=== PATIENT | male | born 1945 | race Two or more races ===

== ENCOUNTER 2017-09-25 06:41 | Inpatient (IN) | payer OTHER ==
[~2017-09-25] VITALS: Ht 182.9 cm; Wt 96.5 kg
[~2017-09-25 06:41] MED LIST: ASCO500T11 PO; ASPI81TA27 PO; B-CO1TAB8 PO; CHOL20009 PO; DICL-176 PO; FERR325T PO; FOLI1TAB6 PO; GABA-497 PO; HYDR200T36 PO; INSLANTI SC; INSLISPI SC; KRIL1CAP9 PO; LEFL20TA PO; LEUP22.52 IM; LEVO137T3 PO; LISI-275 PO; LOPE2CAP PO; METF-372 PO; METH5INJ IJ; MORP1TAB12 PO; MULTTAB61 PO; OMEP20CA74 PO; PERCOT PO; PRED-559 PO; SIMV-8 PO; THIA100T11 OP
[2017-09-25] MEDS ORDERED: ceFAZolin 1GM/50ML 50 ML IV ONE (07:48)
[2017-09-25] MEDS ORDERED: TRANEXAMIC ACID 1,000 mg/10ml INJ VIAL ONE (08:00)
[2017-09-25] MEDS ORDERED: LIDOCAINE 1% HCL (LOCAL ANESTH.) INJ 20ML MDV ONE (08:00)
[2017-09-25] MEDS ORDERED: BUPIVACAINE HCL 50 ML ONE (08:00)
[2017-09-25] MEDS ORDERED: fentaNYL CITRATE 100 MCG/2 ML VL ONE ×2 (08:19→08:40)
[2017-09-25] MEDS ORDERED: MIDAZOLAM HCL 1MG/1ML-2 ML VIAL ONE (08:19)
[2017-09-25] MEDS ORDERED: PROPOFOL 10 MG/ML 20 ML IV ONE (08:22)
[2017-09-25] MEDS ORDERED: methylPREDNISolone SOD SUCC 40 MG/ML VL ONE (08:39)
[2017-09-25] MEDS ORDERED: hydrALAZINE HCL 20 MG/ML VL IV PRN (10:00)
[2017-09-25] MEDS ORDERED: ONDANSETRON HCL 4 MG/2 ML VIAL IV ONE (10:00)
[2017-09-25] MEDS ORDERED: ePHEDrine SULFATE 50 MG/ML AMP IV PRN (10:00)
[2017-09-25] MEDS: MORPHINE SULF INJ 2 MG/ML SYRINGE 1ML IV PRN ×6 (10:18→23:10)
[2017-09-25] MEDS ORDERED: KETOROLAC TROMETH 30 MG/ML 1ML VIAL ONE (10:56)
[2017-09-25] MEDS ORDERED: MORPHINE SULF INJ 2 MG/ML SYRINGE 1ML IV PRN ×2 (11:00→12:30)
[2017-09-25] MEDS ORDERED: KETOROLAC TROMETH 30 MG/ML 1ML VIAL IV ONE (11:15)
[2017-09-25] MEDS ORDERED: NITROGLYCERIN 0.4 MG SL TAB SL PRN (12:30)
[2017-09-25] MEDS ORDERED: DEXTROSE (50%) 50ML SYRG IV PRN (12:45)
[2017-09-25] MEDS: THIAMINE HCL 100 MG TAB PO SCH (13:15)
[2017-09-25] MEDS: LOPERAMIDE HCL 2 MG CAP PO SCH ×2 (14:00→22:00)
[2017-09-25] MEDS: GABAPENTIN 300 MG CAP PO SCH ×2 (14:00→21:31)
[2017-09-25] MEDS: ceFAZolin 1GM/50ML 50 ML IV SCH ×2 (15:00→21:31)
[2017-09-25] MEDS: InsuLIN REG 1unit/0.01ml Soln (100units/ml) SC SCH ×2 (16:00→20:00)
[2017-09-25] MEDS: ACCU-CHEK COMFORT CURVE STRIP VI SCH ×2 (16:17→21:36)
[2017-09-25 17:05] VITALS: BP 137/80
[2017-09-25] MEDS: D5W/LACTATED RINGERS 1,000 ML IV SCH ×2 (18:13→21:37)
[2017-09-25 22:00] VITALS: BP 126/68
[2017-09-25] MEDS ORDERED: oxyCODONE ER 10 MG TAB PO SCH (22:00)
[2017-09-25] MEDS ORDERED: PRAVASTATIN SODIUM 20 MG TAB PO SCH (22:00)
[2017-09-26] MEDS: OXYCODONE W/ ACETAMINOPHEN 5/325MG TABLET PO PRN ×2 (02:50→06:55)
[2017-09-26] MEDS: ACCU-CHEK COMFORT CURVE STRIP VI SCH ×3 (02:51→08:00)
[2017-09-26] MEDS: InsuLIN REG 1unit/0.01ml Soln (100units/ml) SC SCH ×3 (04:00→08:00)
[2017-09-26] MEDS: MORPHINE SULF INJ 2 MG/ML SYRINGE 1ML IV PRN ×2 (04:11→08:35)
[2017-09-26 04:37] VITALS: BP 148/70
[2017-09-26] MEDS: GABAPENTIN 300 MG CAP PO SCH (05:57)
[2017-09-26] MEDS: ceFAZolin 1GM/50ML 50 ML IV SCH (06:00)
[2017-09-26] MEDS: LOPERAMIDE HCL 2 MG CAP PO SCH (06:00)
[2017-09-26 06:36] LABS: BUN/Creatinine Ratio 14.1; Calcium 8.3 mg/dL (8.5-10.1); Potassium 3.9 mmol/L (3.5-5.1)
[2017-09-26 08:00] VITALS: BP 127/65
[2017-09-26] MEDS ORDERED: HYDROcodone-ACET 10/325MG TAB PO PRN (08:15)
[2017-09-26] MEDS ORDERED: PANTOPRAZOLE 40 MG TAB PO SCH (10:00)
[2017-09-26] MEDS ORDERED: ENOXAPARIN SOD 30 MG/0.3 ML SYRINGE SC SCH (10:00)
[2017-09-26] MEDS ORDERED: LISINOPRIL 5 MG TAB PO SCH (10:00)
[2017-09-26] MEDS ORDERED: oxyCODONE ER 20 MG TAB PO SCH (10:00)
[2017-09-26] MEDS ORDERED: ASCORBIC ACID 500 MG TAB PO SCH (10:00)
[2017-09-26] MEDS ORDERED: MULTIPLE VITAMIN TAB PO SCH (10:00)
[2017-09-26] MEDS: THIAMINE HCL 100 MG TAB PO SCH (10:36)
[2017-09-26 12:11] VITALS: BP 127/65
[2017-09-26 13:00] VITALS: BP 129/65
[2017-09-26 17:53] VITALS: BP 168/105
== END 2017-09-26 13:15 | disposition home or self-care (01) | DRG 502 ==
LOC: SUR 06:41 → EAST 06:42
PROVIDERS: ADMIT Orthopaedic Surgery Adult Reconstructive Orthopaedic Surgery; ATTEND Orthopaedic Surgery Adult Reconstructive Orthopaedic Surgery
PROC: 0LUL0KZ Supplement Right Upper Leg Tendon with Nonautologous Tissue Substitute, Open Approach (ICD-10-PCS; principal; 2017-09-25 08:19)
DX: S76.111A Strain of right quadriceps muscle, fascia and tendon, initial encounter (principal); E11.9 Type 2 diabetes mellitus without complications; M06.9 Rheumatoid arthritis, unspecified; Z79.4 Long term (current) use of insulin; Y93.89 Activity, other specified; Z82.49 Family history of ischemic heart disease and other diseases of the circulatory system; Y92.89 Other specified places as the place of occurrence of the external cause; Y99.8 Other external cause status; Z85.46 Personal history of malignant neoplasm of prostate; Z83.3 Family history of diabetes mellitus; Z79.899 Other long term (current) drug therapy; X50.1XXA Overexertion from prolonged static or awkward postures, initial encounter
CPT/HCPCS: 36415; 80048; 82962; J0690; J1815; J1885; J2001; J2250; J2405; J2704; J3490; J7060

== ENCOUNTER 2017-12-25 06:32 | Day surgery (SDC) | payer OTHER ==
[~2017-12-25 06:32] MED LIST changes: +FERR-20 PO; -FERR325T PO; -GABA-497 PO; +GABA300C10 PO
[2017-12-25] MEDS ORDERED: LIDOCAINE 1% HCL (LOCAL ANESTH.) INJ 20ML MDV ONE (06:55)
[2017-12-25] MEDS ORDERED: ceFAZolin 1GM VL ONE (06:55)
[2017-12-25] MEDS ORDERED: BUPIVACAINE 0.25% INJ 50ML VIAL ONE (06:55)
[2017-12-25] MEDS ORDERED: ceFAZolin 1GM/50ML 100 ML IV ONE (06:56)
[2017-12-25] MEDS ORDERED: cefTRIAXone 1GM/50ML D5W 50 ML IV ONE (06:58)
[2017-12-25] MEDS ORDERED: PROPOFOL 10 MG/ML 20 ML IV ONE (07:25)
[2017-12-25] MEDS ORDERED: fentaNYL CITRATE 100 MCG/2 ML VL ONE (07:25)
[2017-12-25] MEDS ORDERED: HYDROCORTISONE SOD SUCC 100 MG/2ML INJ VIAL ONE (07:29)
[2017-12-25] MEDS ORDERED: cefTRIAXone SOD 1,000 MG VL ONE (07:38)
[2017-12-25] MEDS ORDERED: ePHEDrine SULFATE 50 MG/ML AMP IV PRN (08:30)
[2017-12-25] MEDS ORDERED: MORPHINE SULFATE 4 MG/ML SYR/VIAL IV PRN (08:30)
[2017-12-25] MEDS ORDERED: hydrALAZINE HCL 20 MG/ML VL IV PRN (08:30)
[2017-12-25 09:25] VITALS: BP 138/68
== END 2017-12-25 09:30 | disposition home or self-care (01) ==
LOC: SUR 06:32
PROVIDERS: ATTEND Orthopaedic Surgery Adult Reconstructive Orthopaedic Surgery
DX: L08.89 Other specified local infections of the skin and subcutaneous tissue (principal); M13.161 Monoarthritis, not elsewhere classified, right knee; C61 Malignant neoplasm of prostate; M06.9 Rheumatoid arthritis, unspecified; E11.9 Type 2 diabetes mellitus without complications; I10 Essential (primary) hypertension; E03.9 Hypothyroidism, unspecified; Z79.4 Long term (current) use of insulin
CPT/HCPCS: 11043; 82962; J0690; J0696; J1720; J2001; J2704; J3010; J3490

== ENCOUNTER 2021-02-22 07:34 | Inpatient (IN) | payer OTHER ==
[2021-02-22] VITALS (8 sets, daily range): BP systolic 103–140; BP diastolic 53–85
[~2021-02-22] VITALS: Ht 154.9 cm; Wt 81.9 kg
[~2021-02-22 07:34] MED LIST changes: -ASPI81TA27 PO; -B-CO1TAB8 PO; -CHOL20009 PO; -DICL-176 PO; +DICL75TA3 PO; +IPRA0.03; -MORP1TAB12 PO; -MULTTAB61 PO; -PERCOT PO; -THIA100T11 OP; +UPAD15TA PO
[2021-02-22] MEDS ORDERED: BUPIVACAINE 0.25% INJ 50ML VIAL ONE (08:41)
[2021-02-22] MEDS ORDERED: TRANEXAMIC ACID 10 ML ONE (08:41)
[2021-02-22] MEDS ORDERED: BUPIVACAINE W/ EPINEPH 0.5% MPF 30ML VIAL IJ ONE (08:41)
[2021-02-22] MEDS ORDERED: VANCOMYCIN HCL 1000 MG VL ONE (08:47)
[2021-02-22] MEDS ORDERED: ACETAMINOPHEN IV 100 ML IV ONE (09:08)
[2021-02-22] MEDS ORDERED: ceFAZolin 1GM/50ML 100 ML IV ONE (09:08)
[2021-02-22] MEDS ORDERED: ACETAMINOPHEN IV 1000 MG/100ML (10MG/ML) IV ONE (09:15)
[2021-02-22] MEDS ORDERED: PREGABALIN CAPSULE 75 MG CAP PO ONE (09:15)
[2021-02-22] MEDS ORDERED: CELECOXIB 100 MG CAP PO ONE (09:15)
[2021-02-22] MEDS ORDERED: MORPHINE SULF PF 2 MG/2 ML SYRG ONE ×2 (09:36→09:48)
[2021-02-22] MEDS ORDERED: KETOROLAC TROMETH 30 MG/ML 1ML VIAL ONE (09:36)
[2021-02-22] MEDS ORDERED: TETRACAINE 1% INJ 2 ML VIAL IJ ONE (09:46)
[2021-02-22] MEDS ORDERED: fentaNYL CITRATE 100 MCG/2 ML VL ONE (09:48)
[2021-02-22] MEDS ORDERED: MIDAZOLAM HCL 2MG/2ML 2ml VIAL (1mg/ml) ONE ×2 (09:48→10:22)
[2021-02-22] MEDS ORDERED: PROPOFOL 10 MG/ML 20 ML IV ONE (10:12)
[2021-02-22] MEDS ORDERED: DexAMETHasone SOD PHOS 10MG/1ML VIAL INJ ONE (10:12)
[2021-02-22] MEDS: TRANEXAMIC ACID 10 ML ONE ×2 (10:30→12:01)
[2021-02-22] MEDS ORDERED: LABETALOL HCL 5 MG/ML 4ML SYRINGE IV PRN (11:45)
[2021-02-22] MEDS ORDERED: diphenhdrAMINE HCL 50 MG/1 ML VL IV PRN (11:45)
[2021-02-22] MEDS ORDERED: NALOXONE HCL 0.4 MG/ML VIAL IV PRN (11:45)
[2021-02-22] MEDS ORDERED: NALBUPHINE HCL 10 MG/1ml INJECTION SUBCUT ONE (11:45)
[2021-02-22] MEDS ORDERED: HYDROmorphone HCL 2 MG/ML VL IV PRN (11:45)
[2021-02-22] MEDS ORDERED: ePHEDrine SULFATE 50 MG/ML AMP IV PRN (11:45)
[2021-02-22] MEDS ORDERED: ONDANSETRON HCL 4 MG/2 ML VIAL IV PRN ×2 (11:45→12:15)
[2021-02-22] MEDS ORDERED: DexAMETHasone SOD PHOS 10MG/1ML VIAL INJ IV PRN (11:45)
[2021-02-22] MEDS: FERROUS SULFATE 325mg EC TAB PO SCH ×2 (12:00→17:05)
[2021-02-22] MEDS ORDERED: NITROGLYCERIN 0.4 MG SL TAB SL PRN (12:15)
[2021-02-22] MEDS ORDERED: MORPHINE SULFATE INJECTION 2 MG/ML SYRG IV PRN (12:15)
[2021-02-22] MEDS ORDERED: OXYCODONE W/ ACETAMINOPHEN 5/325MG TABLET PO PRN (12:15)
[2021-02-22] MEDS ORDERED: BISACODYL 5 MG EC TAB PO PRN (12:15)
[2021-02-22] MEDS ORDERED: DEXTROSE (50%) 50ML SYRG IV PRN (12:15)
[2021-02-22] MEDS ORDERED: ceFAZolin 1GM/50ML 50 ML IV SCH (12:15)
[2021-02-22] MEDS: LACTATED RINGER'S 1,000 ML IV SCH ×2 (12:37→22:15)
[2021-02-22] MEDS: GABAPENTIN 300 MG CAP PO SCH ×2 (14:00→21:35)
[2021-02-22] MEDS: INSULIN LISPRO (HUMAN) 100 UNITS/ML ML SC SCH ×2 (14:00→21:47)
[2021-02-22] MEDS: LOPERAMIDE HCL 2 MG CAP PO SCH ×2 (14:00→21:36)
[2021-02-22] MEDS: ceFAZolin 1GM/50ML 50 ML IV SCH ×2 (15:55→21:11)
[2021-02-22] MEDS: ACCU-CHEK COMFORT CURVE STRIP VI SCH ×2 (16:59→21:47)
[2021-02-22] MEDS: InsuLIN REG 1unit/0.01ml Soln (100units/ml) SC SCH ×2 (17:06→21:47)
[2021-02-22] MEDS: ATORVASTATIN 20 MG TAB PO SCH (21:35)
[2021-02-22] MEDS: ATROVENT SCH (21:36)
[2021-02-22] MEDS: DOCUSATE SOD 100 MG CAP PO SCH (21:36)
[2021-02-22] MEDS ORDERED: metFORMIN HYDROCHLORIDE 500 MG TAB PO SCH (22:00)
[2021-02-23] VITALS (11 sets, daily range): BP systolic 102–153; BP diastolic 46–84
[2021-02-23] MEDS: ceFAZolin 1GM/50ML 50 ML IV SCH (03:10)
[2021-02-23] MEDS: INSULIN LISPRO (HUMAN) 100 UNITS/ML ML SC SCH ×3 (06:00→21:32)
[2021-02-23] MEDS: LOPERAMIDE HCL 2 MG CAP PO SCH ×3 (06:00→21:27)
[2021-02-23] MEDS: InsuLIN REG 1unit/0.01ml Soln (100units/ml) SC SCH ×4 (06:08→21:32)
[2021-02-23] MEDS: ACCU-CHEK COMFORT CURVE STRIP VI SCH ×4 (06:09→21:28)
[2021-02-23] MEDS: GABAPENTIN 300 MG CAP PO SCH ×3 (06:13→21:26)
[2021-02-23] MEDS: LEVOTHYROXINE SODIUM 112 MCG TAB PO SCH (06:13)
[2021-02-23] MEDS: LEVOTHYROXINE SODIUM 25 MCG TAB PO SCH (06:13)
[2021-02-23 06:19] LABS: Hemoglobin 8.7 g/dL (13.5-17.5)
[2021-02-23 06:21] LABS: Hematocrit 25.7 % (41.0-53.0)
[2021-02-23 06:42] LABS: Potassium 4.5 mmol/L (3.5-5.1)
[2021-02-23 06:57] LABS: Albumin 2.8 g/dL (3.4-5.0); BUN/Creatinine Ratio 20.2; Bilirubin, Total 0.2 mg/dL (0.2-1.0); Calcium 7.9 mg/dL (8.5-10.1); Total Protein 5.6 g/dL (6.4-8.2)
[2021-02-23] MEDS: traMADol HCL 50 MG TAB PO PRN ×2 (06:58→19:50)
[2021-02-23] MEDS: FERROUS SULFATE 325mg EC TAB PO SCH ×3 (08:30→18:04)
[2021-02-23] MEDS: LACTATED RINGER'S 1,000 ML IV SCH ×2 (08:30→23:00)
[2021-02-23] MEDS: ENOXAPARIN SOD 40 MG/0.4 ML SYRINGE SC SCH (09:37)
[2021-02-23] MEDS: DOCUSATE SOD 100 MG CAP PO SCH ×2 (09:39→21:26)
[2021-02-23] MEDS: FOLIC ACID 1 MG TAB PO SCH (09:39)
[2021-02-23] MEDS: OMEPRAZOLE 20MG/10ML ORAL SUSP PO SCH (09:40)
[2021-02-23] MEDS: LISINOPRIL 5 MG TAB PO SCH (09:40)
[2021-02-23] MEDS: ASCORBIC ACID 500 MG TAB PO SCH (09:41)
[2021-02-23] MEDS: ATROVENT SCH ×2 (09:46→21:28)
[2021-02-23] MEDS: OXYCODONE W/ ACETAMINOPHEN 5/325MG TABLET PO PRN ×2 (10:41→21:27)
[2021-02-23] MEDS: HYDROmorphone HCL 2 MG/ML VL IV PRN ×2 (12:31→18:19)
[2021-02-23] MEDS: ATORVASTATIN 20 MG TAB PO SCH (21:26)
[2021-02-24] MEDS: HYDROmorphone HCL 2 MG/ML VL IV PRN ×2 (02:08→08:07)
[2021-02-24 04:34] VITALS: BP 137/82
[2021-02-24 05:33] LABS: Hematocrit 25.7 % (41.0-53.0); Hemoglobin 8.8 g/dL (13.5-17.5)
[2021-02-24] MEDS: LOPERAMIDE HCL 2 MG CAP PO SCH ×3 (05:42→21:53)
[2021-02-24 05:55] LABS: Calcium 8.2 mg/dL (8.5-10.1); Magnesium 2.1 mg/dL (1.6-2.6); Potassium 4.1 mmol/L (3.5-5.1)
[2021-02-24 05:58] LABS: BUN/Creatinine Ratio 17.5
[2021-02-24] MEDS: INSULIN LISPRO (HUMAN) 100 UNITS/ML ML SC SCH ×3 (06:00→22:05)
[2021-02-24] MEDS: GABAPENTIN 300 MG CAP PO SCH ×3 (06:04→21:53)
[2021-02-24] MEDS: LEVOTHYROXINE SODIUM 25 MCG TAB PO SCH (06:04)
[2021-02-24] MEDS: LEVOTHYROXINE SODIUM 112 MCG TAB PO SCH (06:04)
[2021-02-24] MEDS: ACCU-CHEK COMFORT CURVE STRIP VI SCH ×4 (06:05→21:53)
[2021-02-24] MEDS: OXYCODONE W/ ACETAMINOPHEN 5/325MG TABLET PO PRN (06:05)
[2021-02-24] MEDS: InsuLIN REG 1unit/0.01ml Soln (100units/ml) SC SCH ×4 (06:10→22:05)
[2021-02-24 08:01] VITALS: BP 120/68
[2021-02-24] MEDS: FERROUS SULFATE 325mg EC TAB PO SCH ×3 (08:06→18:33)
[2021-02-24] MEDS: ENOXAPARIN SOD 40 MG/0.4 ML SYRINGE SC SCH (09:56)
[2021-02-24] MEDS: ASCORBIC ACID 500 MG TAB PO SCH (10:09)
[2021-02-24] MEDS: DOCUSATE SOD 100 MG CAP PO SCH ×2 (10:09→21:53)
[2021-02-24] MEDS: ATROVENT SCH ×2 (10:10→21:53)
[2021-02-24] MEDS: LISINOPRIL 5 MG TAB PO SCH (10:10)
[2021-02-24] MEDS: FOLIC ACID 1 MG TAB PO SCH (10:11)
[2021-02-24] MEDS: OMEPRAZOLE 20MG/10ML ORAL SUSP PO SCH (10:11)
[2021-02-24] MEDS ORDERED: METOPROLOL SUCCINATE XL 50 MG TAB PO ONE (11:30)
[2021-02-24 12:00] VITALS: BP 120/68
[2021-02-24 16:39] VITALS: BP 106/56
[2021-02-24] MEDS: traMADol HCL 50 MG TAB PO PRN (20:05)
[2021-02-24 21:39] VITALS: BP 119/67
[2021-02-24] MEDS: ATORVASTATIN 20 MG TAB PO SCH (21:53)
[2021-02-25 05:08] VITALS: BP 152/82
[2021-02-25] MEDS: INSULIN LISPRO (HUMAN) 100 UNITS/ML ML SC SCH ×2 (06:00→13:54)
[2021-02-25] MEDS: LOPERAMIDE HCL 2 MG CAP PO SCH ×2 (06:00→13:43)
[2021-02-25] MEDS: LEVOTHYROXINE SODIUM 25 MCG TAB PO SCH (06:04)
[2021-02-25] MEDS: LEVOTHYROXINE SODIUM 112 MCG TAB PO SCH (06:04)
[2021-02-25] MEDS: GABAPENTIN 300 MG CAP PO SCH ×2 (06:04→13:45)
[2021-02-25] MEDS: ACCU-CHEK COMFORT CURVE STRIP VI SCH ×3 (06:05→17:00)
[2021-02-25] MEDS: InsuLIN REG 1unit/0.01ml Soln (100units/ml) SC SCH ×3 (06:07→17:00)
[2021-02-25 06:12] LABS: Hematocrit 26.1 % (41.0-53.0)
[2021-02-25] MEDS: FERROUS SULFATE 325mg EC TAB PO SCH ×2 (07:44→12:00)
[2021-02-25] MEDS: OXYCODONE W/ ACETAMINOPHEN 5/325MG TABLET PO PRN (08:41)
[2021-02-25 08:46] VITALS: BP 130/76
[2021-02-25] MEDS: DOCUSATE SOD 100 MG CAP PO SCH (09:38)
[2021-02-25] MEDS: LISINOPRIL 5 MG TAB PO SCH (09:38)
[2021-02-25] MEDS: ASCORBIC ACID 500 MG TAB PO SCH (09:39)
[2021-02-25] MEDS: FOLIC ACID 1 MG TAB PO SCH (09:39)
[2021-02-25] MEDS: ENOXAPARIN SOD 40 MG/0.4 ML SYRINGE SC SCH (09:39)
[2021-02-25] MEDS: ATROVENT SCH (09:40)
[2021-02-25] MEDS: OMEPRAZOLE 20MG/10ML ORAL SUSP PO SCH (09:40)
[2021-02-25] MEDS ORDERED: ASPirin 81 mg TAB PO ONE (10:45)
[2021-02-25] MEDS ORDERED: METOPROLOL SUCCINATE XL 50 MG TAB PO ONE (10:45)
[2021-02-25 13:20] VITALS: BP 113/62
[2021-02-25 16:31] VITALS: BP 121/70
[2021-02-26] MEDS ORDERED: ASPirin 81 mg TAB PO SCH (10:00)
[2021-02-26] MEDS ORDERED: METOPROLOL SUCCINATE XL 50 MG TAB PO SCH (10:00)
== END 2021-02-25 16:53 | disposition home health service (06) | DRG 470 ==
LOC: TELE 08:57 → EDSTATUS 09:45 → TELE-WESTW 15:01
PROVIDERS: ADMIT Orthopaedic Surgery Adult Reconstructive Orthopaedic Surgery; ATTEND Orthopaedic Surgery Adult Reconstructive Orthopaedic Surgery
PROC: 3E0T3BZ Introduction of Anesthetic Agent into Peripheral Nerves and Plexi, Percutaneous Approach (ICD-10-PCS; 2021-02-22)
PROC: 8E0YXBZ Computer Assisted Procedure of Lower Extremity (ICD-10-PCS; 2021-02-22)
PROC: 0SRD0J9 Replacement of Left Knee Joint with Synthetic Substitute, Cemented, Open Approach (ICD-10-PCS; principal; 2021-02-22 09:51)
DX: M17.12 Unilateral primary osteoarthritis, left knee (principal); E44.0 Moderate protein-calorie malnutrition; I10 Essential (primary) hypertension; E11.65 Type 2 diabetes mellitus with hyperglycemia; M06.9 Rheumatoid arthritis, unspecified; D64.9 Anemia, unspecified; E11.42 Type 2 diabetes mellitus with diabetic polyneuropathy; R00.0 Tachycardia, unspecified; Z20.822 Contact with and (suspected) exposure to COVID-19; I49.9 Cardiac arrhythmia, unspecified; M21.162 Varus deformity, not elsewhere classified, left knee; Z79.4 Long term (current) use of insulin; Z82.0 Family history of epilepsy and other diseases of the nervous system; Z82.49 Family history of ischemic heart disease and other diseases of the circulatory system; Z83.3 Family history of diabetes mellitus; Z85.46 Personal history of malignant neoplasm of prostate; Z68.34 Body mass index [BMI] 34.0-34.9, adult
CPT/HCPCS: 36415; 73562; 80048; 80053; 82962; 83735; 84484; 85014; 85018; 86850; 86900; 86901; 93005; 97110; 97116; 97163; 97530; C1713; C1776; G0378; J0131; J0690; J1100; J1815; J1885; J2250; J2704; J3490

== ENCOUNTER 2025-08-23 01:29 | Inpatient (IN) | payer OTHER ==
[~2025-08-23] VITALS: Ht 180.3 cm; Wt 78.5 kg
[2025-08-23] VITALS (8 sets, daily range): BP systolic 116–149; BP diastolic 58–84; PULSE 52–78; RESP 17–20; TEMP 96–97.9; O2SAT 95–98
[~2025-08-23 01:29] MED LIST changes: -FERR-20 PO; +FERR325T24 PO; +FOLI-119 PO; -FOLI1TAB6 PO; +GABA-1250 PO; -GABA300C10 PO; -SIMV-8 PO; +SIMV20TA20 PO
--- NOTE | 2025-08-23 01:47 | ED.PDOC ---
HPI Comments HPI: Poor Historian. 80-year-old male transferred from [facility] for higher level of care for cardiology evaluation. Patient presented to the outside facility for lightheadedness and decreased heart rate in the 40s and some nonspecific substernal pain for the last three days. While the patient was waiting there, patient had runs of V-tach proximally 11-15 beats. Patient was noted to have first-degree AV block rate in the 70s. Cardiology was consulted at the outside facility Dr. Cohen who recommended transfer the patient to [facility] where his acoustical material worker Dr. Wolf is. Per the transfer doctor, patient troponin x2 was unremarkable. CTA angiogram of the chest was normal without any presence of dissection or PE. Patient is awaiting a GI procedure and has stopped taking his omeprazole. Patient was given GI cocktail at the outside facility. Patient has an appointment with his acoustical material worker this coming Monday. CBC and CMP were essentially unremarkable. Patient's blood pressure remained stable throughout. They transferred the patient for possible need for pace maker. Past Medical History: Prostate cancer, arthritis, thyroid disease, hyperlipidemia, Past Surgical History: Left knee replacement, laminectomy, prostatectomy, arthroplasty of knee, hip surgery. REVIEW OF SYSTEMS: CONSTITUTIONAL: Denies acute: fever, diaphoresis, chills, HEAD: Denies acute: headache, photophobia Eyes: Denies acute: Double vision, vision loss, eye pain, eye discharge. EARS: Denies acute: tinnitus, hearing loss, ear discharge, ear pain, THROAT: Denies acute: sore throat, swelling, difficulty swallowing , pain with swallowing, change in voice. NECK: Denies acute: neck pain, neck swelling, stiff neck. HEART: Denies acute : chest pain, palpitations, LUNGS: Denies acute: SOB, wheezing, cough, hemoptysis ABDOMEN: Denies acute: abdominal pain, Nausea, Vomiting, diarrhea, melena , hematemesis, hematochezia SKIN: Denies acute: rash, redness, lesions, itchiness. EXTREMITIES: Denies acute: calf pain, numbness, tingling, weakness, denies pain in extremity. Denies acute: Low back pain. Neuro: Denies acute: focal neurological deficit, motor or sensory focal neurological deficit, tremors, seizure like activity, confusion, dizziness, change in mental status, loss of bowel or bladder function, cauda equina like symptoms. : Denies acute: dysuria, hematuria, flank pain, increase in urinary frequency. PSYCH: Denies acute: hallucination, suicidal ideation, homicidal ideation. PHYSICAL EXAM: General: ----no----acute distress, awake and alert. Wearing hearing aids. Head: normocephalic, atraumatic. No raccoon's eyes, no arellano sign. Neck: supple, trachea is midline, no swelling. Throat: Normal phonation. Eyes:, no erythema, no purulent discharge, no proptosis, no icterus. Heart: regular rate, regular rhythm, no significant murmur appreciated. Lungs: no apparent respiratory distress, Able to speak in full sentences. No wheezing, no rhonchi, no crackles. No stridors Clear to auscultation bilaterally. Abdomen: non tender to palpation, non distended, soft, no guarding, no rebound, + bowel sounds. Neuro: Awake, Alert, oriented to name, self, situation, follows commands GCS=15. Speech is normal. Skin: no petechia, no purpura, no cyanosis, non-pale, not jaundice. Lower extremities: --no - Pitting edema no deformity, no focal swelling, no calf TTP. Makes eye contact. moves all four extremities. Face: no apparent facial droop. Ambulating in the ED independently. ED COURSE: DISCLAIMER: This medical document was created using an electronic medical record system with voice recognition software and computerized dictation system. Although this document has been carefully reviewed, there might still be some phonetic and typographical errors. Occasional wrong-word or "sound-alike" substitutions may have occurred due to the inherent limitations of voice recognition software. These areas are purely typographical due to imperfections of the software programs and do not reflect any compromise in the patient's medical care. Please read the chart carefully and recognize, using context, where these substitutions have occurred. Chief Complaint: Chest Pain Time Seen by MD: 01:36 Reviewed Notes: Allergies Allergies: Coded Allergies: NO KNOWN ALLERGIES (Unverified , 09/22/17) Home Meds Reported Medications Upadacitinib (Rinvoq) 15 Mg Tab, 15 MG PO DAILY, #1 TAB 02/18/21 Ipratropium [place] (Ipratropium [place]) 0.03 % Spr, 0.03 % NA BID, #1 SPRAY 02/18/21 Ascorbic Acid (VITAMIN C TABLET) 500 Mg Tb, 1 TAB PO DAILY, #30 TAB 3 Refills 09/22/17 Krill Oil (Megared [place]-3 Krill Oil 500 mg) 1 Cap Cap, 1 CAP PO DAILY, CAP 09/22/17 Methotrexate Sodium (Methotrexate Sodium) 50 Mg/2 Ml Inj, 1 ML IJ QWEEKLY, INJ 09/22/17 Diclofenac Sodium (Diclofenac Sodium Dr) 75 Mg Tab, 1 TAB PO BID, #60 TAB 1 Refill 09/22/17 Hydroxychloroquine Sulfate (Hydroxychloroquine Sulfat) 200 Mg Tab, 200 MG PO BID for 30 Days, MG 09/22/17 Prednisone (Deltasone) 20 Mg Tab, 20 MG PO DAILY, TAB 09/22/17 Leflunomide (Arava) 20 Mg Tab, 1 TAB PO DAILY, #30 TAB 09/22/17 Omeprazole (PRILOSEC) 20 Mg Cap, 20 MG PO DAILY for 30 Days, MG 09/22/17 Ferrous Sulfate (Ferrous Sulfate) 325 Mg Tab, 325 MG PO TIDWM for 30 Days 09/22/17 Simvastatin (Simvastatin) 20 Mg Tab, 20 MG PO DAILY for 30 Days 09/22/17 Loperamide Hcl (Loperamide Hcl) 2 Mg Cap, 2 MG PO TID, MG 09/22/17 Gabapentin (Gabapentin) 300 Mg Cap, 300 MG PO TID for 30 Days, MG 09/22/17 Leuprolide Acetate (3 Month) (Lupron Depot) 22.5 Mg Inj, 22.5 MG IM [id number], INJ 09/22/17 Insulin Lispro (Human) (Humalog) 100 Mg/Ml Inj, 10 UNITS SC TID, INJ 09/22/17 Insulin Glargine (Lantus) 100 Unit/Ml Inj, 15 UNIT SC DAILY, INJ 09/22/17 Folic Acid (Folic Acid) 1 Mg Tab, 1 MG PO DAILY for 30 Days, MG 09/22/17 Levothyroxine Sodium (Levothyroxine Sodium) 137 Mcg Tab, 137 MCG PO QAM for 30 Days 09/22/17 Lisinopril (Lisinopril) 5 Mg Tab, 2.5 MG PO DAILY for 30 Days, MG 09/22/17 Metformin Hydrochloride (Metformin Hcl) 1,000 Mg Tab, 1 TAB PO BID, #60 TAB 5 Refills 09/22/17 Was a procedure done? Was a procedure done?: No CP Differential Dx Differential Diagnosis: A-fib, A-Flutter, Angina, Anxiety / Panic Attack, Atrial Dysrhythmia, AV Block 1st Degree, AV Block 2nd Degree, AV Block 3rd Degree, Digoxin Toxicity, Electrolyte Disorder, Heart Failure, Hyperthyroidism, Hyperventilation, Hypoxia, MAT, KS, PAC's, Pacemaker Malfunction, PSVT, Pulmonary Embolus, PVC's, Renal Failure, Sinus Tachycardia, Torsades De Pointes, Ventricular Dysrhythmia, V-Fib, V-Tach, WPW Differential Diagnosis: Other (Ddx include but not limitied to gastritis, musculoskeletal pain, radiculopathy, atypical chest pain, dissection, aneurysm, ACS, unstable angina, hiatal hernia, GERD, anxiety, costochondritis, PE, pneumothroax, neoplasm, cardiac ischemia, drug abuse, anemia.) X-Ray, Labs, Meds, VS Vital Signs Date Time Temp Pulse Resp B/P (MAP) Pulse Ox O2 Delivery O2 Flow Rate FiO2 08/23/25 02:44 57 08/23/25 02:00 52 10 146/76 (99) 95 08/23/25 02:00 52 95 Room Air* 0 21 08/23/25 01:54 97.9 62 15 150/84 (106) 93 97.9 08/23/25 01:39 61 08/23/25 01:29 97.9 55 18 146/67 96 97.9 Lab Test 08/23/25 03:55 08/23/25 03:49 08/23/25 02:53 08/23/25 02:52 Range/Units White Blood Count 4.5 4.4-10.8 10^3/uL Red Blood Count 3.32 L 4.5-5.90 10^6/uL Hemoglobin 11.1 L 13.5-17.5 g/dL Hematocrit 32.6 L 41.0-53.0 % Mean Corpuscular Volume 98.1 80.0-100.0 fL Mean Corpuscular Hemoglobin 33.3 H 28.0-32.0 pg Mean Corpuscular Hemoglobin Concent 34.0 32.0-36.0 g/dL Red Cell Distribution Width 16.8 H 11.8-14.3 % Platelet Count 305 140-450 10^3/uL Mean Platelet Volume 6.3 L 6.9-10.8 fL Neutrophils (%) (Auto) 65.5 37.0-80.0 % Lymphocytes (%) (Auto) 28.4 10.0-50.0 % Monocytes (%) (Auto) 2.6 0.0-12.0 % Eosinophils (%) (Auto) 2.7 0.0-7.0 % Basophils (%) (Auto) 0.8 0.0-2.0 % Neutrophils # (Auto) 2.9 1.6-8.6 10 ^3/uL Lymphocytes # (Auto) 1.3 0.4-5.4 10 ^3/uL Monocytes # (Auto) 0.1 0-1.3 10 ^3/uL Eosinophils # (Auto) 0.1 0-0.8 10 ^3/uL Basophils # (Auto) 0 0-0.2 10 ^3/uL Nucleated Red Blood Cells 0.0 % Prothrombin Time 10.7 9.3-11.8 sec Prothrombin Time INR 1.01 0.9-1.15 Sodium Level 140 136-145 mmol/L Potassium Level 4.1 3.5-5.1 mmol/L Chloride Level 105 98-107 mmol/L Carbon Dioxide Level 26 20-31 mmol/L Anion Gap 9 5-15 Blood Urea Nitrogen 17 9-23 mg/dL Creatinine 1.20 0.700-1.30 mg/dL Glomerular Filtration Rate Calc 61 >90 mL/min BUN/Creatinine Ratio 14.2 10.0-20.0 Serum Glucose 135 H 74-106 mg/dL Calcium Level 10.1 8.7-10.4 mg/dL Magnesium Level 2.0 1.6-2.6 mg/dL Total Bilirubin 0.7 0.2-1.0 mg/dL Aspartate Amino Transferase (AST) 65 H 13-40 U/L Alanine Aminotransferase (ALT) 65 H 7-40 U/L Alkaline Phosphatase 74 46-116 U/L Troponin I High Sensitivity 61 *H </=54 ng/L B-Type Natriuretic Peptide 347.81 0-100 pg/mL Total Protein 7.0 5.7-8.2 g/dL Albumin 4.4 3.2-4.8 g/dL POC Glucose 110 H 59 L 63 L 70-106 mg/dl [address] [address] Ph: [phone] DIAGNOSTIC IMAGING Diagnostic Imaging Report : [id number] Signed PATIENT: LOIS GUADALUPE ACCT: [id number] UNIT: [id number] : 1945 LOC: ER ROOM / BED: / AGE / SEX: 80 / M ADM STATUS: REG ER SERVICE 4 ORDERING PHYSICIAN: DONNA SUÁREZ NP PROCEDURE(s): CXR1 - CHEST XRAY 1 VIEW REASON: CP ORDER NUMBER(s): [id number], ACCESSION NUMBER(s): [id number] CHEST RADIOGRAPH Indication: CP Technique: Single frontal view of the chest was obtained COMPARISON: XR CHEST 1 VIEW on DOS: 08/22/25, XR CHEST 2 VIEWS on DOS: 08/06/25, XR CHEST 2 VIEWS on DOS: 01/17/25, XR CHEST 1 VIEW on DOS: 12/08/22, CH-CHEST 1V on DOS: 04/02/19 FINDINGS: Lines and Tubes: None Lungs: Clear. Moderate right hemidiaphragmatic elevation. Pleura: No effusion. No pneumothorax. Cardiomediastinal contours: Unremarkable Bones: Unremarkable IMPRESSION: 1. No acute disease. ATED BY: VLADIMIR ENRIQUEZ MD DICTATED DATE/TIME: 08/23/25344 SIGNED BY: VLADIMIR ENRIQUEZ MD SIGNED DATE/TIME: 08/23/25344 CC: Time of 1ST Reevaluation: 00:00 Reevaluation 1ST: N/A Patient Education/Counseling: Diagnosis, Treatment Family Education/Counseling: Other Comments MDM: patient presented with the above HPI.--chest pain----workup was initiated. patient was found with the above mentioned diagnosis. the following medications were ordered: please refer to order lists of meds and tests obtained by myself Dr. Gaytan. Patient ED course and VS have been stabilized. Patient has been reassessed in the ED and remained in a stable condition. Pertinent incidental findings were discussed with the patient and/or family. Patient/family voices understanding and is agreeable with plan. Patient has been observed in the ED adequate length of time to insure improvement/stability. Escalation of care considered: Consideration of escalation to observation or admission Patient had one episode of hypoglycemia. We gave him food to eat. Patient was ADMITTED to the medicine team for further evaluation and treatment of their presentation. All the reports of any imaging studies that were ordered by myself were reviewed by myself. Departure 1 Departure Time of Disposition: 01:46 Impression: Primary Impression: Bradycardia Additional Impressions: V tach Elevated troponin Disposition: 09 ADMITTED INPATIENT Admit to: Tele Condition: Guarded Discharged With: Self Critical Care Note Critical Care Time?: Yes (35 min-critical care time only) Heart Score Heart Score: Heart Score Response (Comments) Value History Moderate Suspicious 1 EKG Normal 0 Age >65 2 Risk Factors 1 or 2 risk factors 1 Troponin 1-2 x's Normal limit 1 Total 5 SHAYY GAYTAN DO Aug 23, 2025 01:47
--- NOTE | 2025-08-23 02:45 | ECG ---
[facility] Test Date: 2025-08-23 Test Time: 02:44:34 Pat Name: LOIS GUADALUPE Department: [facility] ED Room: 0294T Gender: M Development Coordinator: DENNIS : 1945 Requested By: SHAYY GAYTAN Order Number: [id number] Reading MD: Yonas Aguero Measurements Intervals [place] Rate: 57 P: -43 IN: 263 QRS: -8 QRSD: 106 T: 42 QT: 454 QTc: 442 Interpretive Statements Sinus rhythm Multiple premature complexes, vent & supraven Prolonged IN interval Abnormal R-wave progression, late transition Borderline T wave abnormalities Electronically Signed On 08-26-2025 13:31:06 PST by Yonas Aguero Please click the below link to view image of tracing.
--- NOTE | 2025-08-23 03:48 | DVH ---
CHEST RADIOGRAPH Indication: CP Technique: Single frontal view of the chest was obtained COMPARISON: XR CHEST 1 VIEW on DOS: 08/22/25, XR CHEST 2 VIEWS on DOS: 08/06/25, XR CHEST 2 VIEWS on DOS: 01/17/25, XR CHEST 1 VIEW on DOS: 12/08/22, CH-CHEST 1V on DOS: 04/02/19 FINDINGS: Lines and Tubes: None Lungs: Clear. Moderate right hemidiaphragmatic elevation. Pleura: No effusion. No pneumothorax. Cardiomediastinal contours: Unremarkable Bones: Unremarkable IMPRESSION: 1. No acute disease.
[2025-08-23 04:14] LABS: Hematocrit 32.6 % (41.0-53.0); Hemoglobin 11.1 g/dL (13.5-17.5); Mean Corpuscular Hemoglobin 33.3 pg (28.0-32.0); Mean Corpuscular Volume 98.1 fL (80.0-100.0); Nucleated Red Blood Cells % 0.0 %
[2025-08-23 04:28] LABS: Albumin 4.4 g/dL (3.2-4.8); Alkaline Phosphatase 74 U/L (46-116); Anion Gap 9 (5-15); BUN/Creatinine Ratio 14.2 (10.0-20.0); Bilirubin, Total 0.7 mg/dL (0.2-1.0); Blood Urea Nitrogen 17 mg/dL (9-23); Calcium 10.1 mg/dL (8.7-10.4); Carbon Dioxide 26 mmol/L (20-31); Chloride 105 mmol/L (98-107); Magnesium 2.0 mg/dL (1.6-2.6); Potassium 4.1 mmol/L (3.5-5.1); Sodium 140 mmol/L (136-145); Total Protein 7.0 g/dL (5.7-8.2)
[2025-08-23] MEDS ORDERED: DOCUSATE SOD 100 MG CAP PO PRN (04:30)
[2025-08-23] MEDS ORDERED: MORPHINE SULFATE INJ 2 MG/ml SYRG IV PRN (04:30)
[2025-08-23] MEDS ORDERED: NITROGLYCERIN 0.4 MG SL TAB SL PRN (04:30)
[2025-08-23] MEDS ORDERED: ONDANSETRON HCL 4 MG/2 ML VIAL IV PRN (04:30)
[2025-08-23] MEDS ORDERED: DEXTROSE (50%) 50ML SYRG IV PRN (04:30)
[2025-08-23 04:35] LABS: INR 1.01 (0.9-1.15); Prothrombin Time 10.7 sec (9.3-11.8)
[2025-08-23 04:39] LABS: Alanine Aminotransferase 65 U/L (7-40); Glucose 135 mg/dL (74-106)
--- NOTE | 2025-08-23 05:54 | DVHHP2 ---
DONNA SUÁREZ SUBMARINE OPERATOR 08/23/25 0554: History of Present Illness Reason for Visit: Transferred from [facility] History of Present Illness 80-year-old male was transferred from [facility] as higher-level care for cardiac evaluation. [facility] consulted with automotive sales associate, Dr. Cohen, who recommended transfer to [facility]. Dr. Wlof is his automotive sales associate. Patient presented with complaints of lightheadedness. Was noted to have a low heart rate in the 40s in his PCP office. Endorsed he has been having substernal / epigastric pain for three days. Also endorsed episodes of shortness of breath and nausea. Patient states he may have felt dizzy because of a low blood sugar. While awaiting transfer from [facility], he did have an episode of VTAC with 11 to 15 beats. Initial work up at [facility] was essentially unremarkable with negative troponins x2. CTA of the chest was without any acute findings, negative for PE or dissection. Imaging disc is in the transfer packet. On arrival to [facility] troponin levels positive 61/55. Patient is also noted to be on Half tablet metoprolol succ. daily. At this time, patient denies fevers, chills, shortness of breath, chest, pain, palpitations, nausea, vomiting, dizziness, syncope, leg, swelling. Cardiovascular: HTN Endocrine: Diabetes Smoke: No ALCOHOL: none Drugs: None Lives: with Family Review of Systems Constitutional: No: Fever, Chills, Sweats, Weakness, Malaise, Other Eyes: No: Pain, Vision change, Conjunctivae inflammation, Eyelid inflammation, Other, Redness ENT: No: Ear pain, Ear discharge, Nose pain, Nose discharge, Nose congestion, Mouth pain, Mouth swelling, Throat pain, Throat swelling, Other Respiratory: No: Cough, Dry, Shortness of breath, SOB with excertion, Wheezing, Hemoptysis, Pleuritic Pain, Sputum, Wheezing, Other Cardiovascular: Chest Pain, Lt Headedness; No: Palpitations, Orthopnea, Paroxysmal Noc. Dyspnea, Edema, Other Gastrointestinal: Nausea; No: Vomiting, Abdominal Pain, Diarrhea, Constipation, Melena, Hematochezia, Other Genitourinary: No Dysuria, No Frequency, No Incontinence, No Hematuria, No Retention, No Other Musculoskeletal: No: other, neck pain, shoulder pain, arm pain, back pain, hand pain, leg pain, foot pain Skin: No: Rash, Lesions, Jaundice, Bruising, Other Neurological: No: Weakness, Numbness, Incoordination, Change in speech, Confusion, Seizures, Other Allergies: Coded Allergies: NO KNOWN ALLERGIES (Unverified , 09/22/17) Medications Current Medications Medications Dose Ordered Sig/Jay Route Start Time Stop Time Status Last Admin Dose Admin Docusate Sodium 100 mg BIDPRN PRN PO 08/23/25 04:30 Acetaminophen 650 mg Q6HP PRN PO 08/23/25 04:30 Ondansetron HCl 4 mg Q4HP PRN IV 08/23/25 04:30 Enoxaparin Sodium 40 mg DAILY SC 08/23/25 10:00 Nitroglycerin 0.4 mg Q5MINP PRN SL 08/23/25 04:30 Morphine Sulfate 2 mg Q30M PRN IV 08/23/25 04:30 Diagnostic Test (Pha) 1 strip ACHS 08/23/25 07:00 Insulin Human Regular ACHS SC 08/23/25 07:00 Dextrose 50 ml UD PRN IV 08/23/25 04:30 Pantoprazole Sodium 40 mg DAILY IV 08/23/25 10:00 Aspirin 81 mg DAILY PO 08/23/25 10:00 UNV Exam Vital Signs Vital Signs Date Time Temp Pulse Resp B/P (MAP) Pulse Ox O2 Delivery O2 Flow Rate FiO2 08/23/25 02:44 57 08/23/25 02:00 10 146/76 (99) 95 08/23/25 02:00 Room Air* 0 21 08/23/25 01:54 97.9 97.9 General Appearance: Alert, Oriented X3, Cooperative, mild distress HEENT: Atraumatic, PERRLA Respiratory: Clear to auscultation, Normal air movement Cardiovascular: Regular rate, Normal S1, Normal S2 Abdominal: Normal bowel sounds, Soft, No tenderness Extremities: No clubbing, No cyanosis, No edema Skin: No rashes Neuro: Normal speech, Strength at 5/5 X4 ext Psych/Mental Status: Mental status NL, Mood NL Labs/Xrays Labs Test 08/23/25 04:48 08/23/25 03:55 08/23/25 03:49 Range/Units White Blood Count 4.5 4.4-10.8 10^3/uL Red Blood Count 3.32 L 4.5-5.90 10^6/uL Hemoglobin 11.1 L 13.5-17.5 g/dL Hematocrit 32.6 L 41.0-53.0 % Mean Corpuscular Volume 98.1 80.0-100.0 fL Mean Corpuscular Hemoglobin 33.3 H 28.0-32.0 pg Mean Corpuscular Hemoglobin Concent 34.0 32.0-36.0 g/dL Red Cell Distribution Width 16.8 H 11.8-14.3 % Platelet Count 305 140-450 10^3/uL Mean Platelet Volume 6.3 L 6.9-10.8 fL Neutrophils (%) (Auto) 65.5 37.0-80.0 % Lymphocytes (%) (Auto) 28.4 10.0-50.0 % Monocytes (%) (Auto) 2.6 0.0-12.0 % Eosinophils (%) (Auto) 2.7 0.0-7.0 % Basophils (%) (Auto) 0.8 0.0-2.0 % Neutrophils # (Auto) 2.9 1.6-8.6 10 ^3/uL Lymphocytes # (Auto) 1.3 0.4-5.4 10 ^3/uL Monocytes # (Auto) 0.1 0-1.3 10 ^3/uL Eosinophils # (Auto) 0.1 0-0.8 10 ^3/uL Basophils # (Auto) 0 0-0.2 10 ^3/uL Nucleated Red Blood Cells 0.0 % Prothrombin Time 10.7 9.3-11.8 sec Prothrombin Time INR 1.01 0.9-1.15 Sodium Level 140 136-145 mmol/L Potassium Level 4.1 3.5-5.1 mmol/L Chloride Level 105 98-107 mmol/L Carbon Dioxide Level 26 20-31 mmol/L Anion Gap 9 5-15 Blood Urea Nitrogen 17 9-23 mg/dL Creatinine 1.20 0.700-1.30 mg/dL Glomerular Filtration Rate Calc 61 >90 mL/min BUN/Creatinine Ratio 14.2 10.0-20.0 Serum Glucose 135 H 74-106 mg/dL Calcium Level 10.1 8.7-10.4 mg/dL Magnesium Level 2.0 1.6-2.6 mg/dL Total Bilirubin 0.7 0.2-1.0 mg/dL Aspartate Amino Transferase (AST) 65 H 13-40 U/L Alanine Aminotransferase (ALT) 65 H 7-40 U/L Alkaline Phosphatase 74 46-116 U/L B-Type Natriuretic Peptide 347.81 0-100 pg/mL Total Protein 7.0 5.7-8.2 g/dL Albumin 4.4 3.2-4.8 g/dL POC Glucose 110 H 70-106 mg/dl SEPSIS Sepsis Screen Date sepsis recognized/suspect: Aug 23, 2025 Time Sepsis recognized/suspect: 199 Recent Procedure: No On Antibiotic Therapy: No Respiratory Rate >20: No Heart Rate >90: No Temp<36 C (96.8 F) or >38.3 C: No SBP <90 or MAP <65 mmHG: No New Acute Mental Status Change: No Is the patient on CPAP, BIPAP,: No Physician Orders Recreational Assistant (08/23/25 ) * Cardiology Consult (08/23/25 02:00) Chest Xray 1 View (08/23/25 03:15) Troponin-I Hs (08/23/25 09:15) Admit (08/23/25 04:26) Code Status (08/23/25 04:26) Vital Signs .PER UNIT PROTOCOL (08/23/25 04:26) Review Orders With Adm. (08/23/25 04:26) Encourage Activity As Tolerate (08/23/25 04:26) Consistent Carb(Ccho)Diabetes (08/23/25 Breakfast) Oxygen By Face Mask (08/23/25 04:26) Docusate Sodium Capsule (Colace Capsule) (08/23/25 04:30) Acetaminophen Tablet (Tylenol Tablet) (08/23/25 04:30) Notify Md Of Changes From Base (08/23/25 04:26) Advance Directive (08/23/25 04:26) Echo 2d Mode Cardiac Dop (08/23/25 04:26) Basic Metabolic Panel (08/24/25 05:00) Basic Metabolic Panel (08/25/25 05:00) Basic Metabolic Panel (08/26/25 05:00) Complete Blood Count (08/24/25 05:00) Complete Blood Count (08/25/25 05:00) Complete Blood Count (08/26/25 05:00) Patient Condition (08/23/25 04:26) Allergies (08/23/25 04:26) Ondansetron Hcl (Zofran) (08/23/25 04:30) Enoxaparin Sodium (Lovenox) (08/23/25 10:00) Sequential Compression Device (08/23/25 ) Nitroglycerin Sublingual (Ntrostat Subli (08/23/25 04:30) Morphine Sulfate Injection (08/23/25 04:30) Stat Ekg For Chest Pain (08/23/25 04:26) Notify Md Of Changes From Base (08/23/25 04:26) Emergency Room Tech For 24 Hours (08/23/25 04:26) Emergency Dysrhythmia Protocol (08/23/25:) Rhythm Strips Once Every Shift (08/23/25 04:26) Oxygen By Nasal Cannula (08/23/25 04:26) Glucose Blood (Accu-Chek Comfort Curve T (08/23/25 07:00) Insulin R (Human) (Insulin R) (08/23/25 07:00) Dextrose 50% Syringe (08/23/25 04:30) Pantoprazole (Protonix) (08/23/25 10:00) Aspirin Tablet (08/23/25 10:00) Vital Signs Date Time Temp Pulse Resp B/P (MAP) Pulse Ox O2 Delivery O2 Flow Rate FiO2 08/23/25 02:44 57 08/23/25 02:00 52 10 146/76 (99) 95 08/23/25 02:00 52 95 Room Air* 0 21 08/23/25 01:54 97.9 62 15 150/84 (106) 93 97.9 08/23/25 01:39 61 08/23/25 01:29 97.9 55 18 146/67 96 97.9 Laboratory Tests Test 08/23/25 03:55 White Blood Count 4.5 10^3/uL (4.4-10.8) Assessment/Plan Assessment/Plan Symptomatic bradycardia Elevated troponin Episode of VTAC DM Plan Admit telemetry Cardiology consult. Echocardiogram. Hold Beta rabia. ASA Blood glucose checks with regular insulin sliding scale coverage Monitor BMP, magnesium levels. Correct electrolytes as needed. Gi ppx protonix / dvt ppx lovenox Plan discussed with: Patient My Orders Orders - DONNA SUÁREZ NP Procedure Category Date Status Time Chest Xray 1 View XY 08/23/25 Resulted 03:15 Troponin-I Hs LAB 08/23/25 In Process 09:15 Admit ADMIT 08/23/25 Transmitted 04:26 Code Status CODE 08/23/25 Transmitted 04:26 Vital Signs [facility] 08/23/25 In Process 04:26 Review Orders With [facility] 08/23/25 In Process Adm. 04:26 Encourage Activity As IDA 08/23/25 In Process Tolerate 04:26 Consistent DIET 08/23/25 Transmitted Carb(Ccho)Diabetes Breakfast Oxygen By Face Mask RT 08/23/25 Transmitted 04:26 Docusate Sodium PHA 08/23/25 In Process Capsule (Colace 04:30 Acetaminophen Tablet PHA 08/23/25 In Process (Tylenol Tablet) 04:30 Notify Of Changes [facility] 08/23/25 In Process From Base 04:26 Advance Directive [facility] 08/23/25 In Process 04:26 Echo 2d Mode Cardiac US 08/23/25 Logged DOP 04:26 Basic Metabolic Panel LAB 08/24/25 Verified 05:00 Basic Metabolic Panel LAB 08/25/25 Verified 05:00 Basic Metabolic Panel LAB 08/26/25 Verified 05:00 Complete Blood Count LAB 08/24/25 Verified 05:00 Complete Blood Count LAB 08/25/25 Verified 05:00 Complete Blood Count LAB 08/26/25 Verified 05:00 Patient Condition ORDERS 08/23/25 Transmitted 04:26 Allergies [facility] 08/23/25 In Process 04:26 Ondansetron Hcl PHA 08/23/25 In Process (Zofran) 04:30 Enoxaparin Sodium [facility] 08/23/25 In Process (Lovenox) 10:00 Sequential IDA 08/23/25 In Process Compression Device Nitroglycerin [facility] 08/23/25 In Process Sublingual (Ntrostat 04:30 Morphine Sulfate PHA 08/23/25 In Process Injection 04:30 Stat Ekg For Chest [facility] 08/23/25 In Process Pain 04:26 Notify Of Changes [facility] 08/23/25 In Process From Base 04:26 Emergency Room Tech For [facility] 08/23/25 In Process 24 Hours 04:26 Emergency Dysrhythmia [facility] 08/23/25 In Process Protocol 04:26 Rhythm Strips Once [facility] 11/1/25 In Process Every Shift 04:26 Oxygen By Nasal RT 08/23/25 Transmitted Cannula 04:26 Glucose Blood PHA 08/23/25 In Process (Accu-Chek Comfort 07:00 Insulin R (Human) PHA 08/23/25 In Process (Insulin R) 07:00 Dextrose 50% Syringe PHA 08/23/25 In Process 04:30 Pantoprazole PHA 08/23/25 In Process (Protonix) 10:00 Aspirin Tablet PHA 08/23/25 Logged 10:00 Date of Service: Aug 23, 2025 Billing Provider: GODWIN TOLEDO MD Common Visit Codes: NOT BILLABLE GODWIN TOLEDO MD 08/23/25 1129: Review of Systems Allergies: Coded Allergies: NO KNOWN ALLERGIES (Unverified , 09/22/17) Additional Comments Additional Comments Additional Comments Patient is seen and evaluated by me earlier today. Discussed with the family who is at bedside. Patient is seen evaluated admitted by nurse practitioner this morning. I agree with his evaluation, documentation, assessment and care plan as outlined. DONNA SUÁREZ NP Aug 23, 2025 05:54 GODWIN TOLEDO MD Aug 23, 2025 11:29
[2025-08-23] MEDS: InsuLIN REG 1unit/0.01ml Soln (100units/ml) SC SCH (06:58)
[2025-08-23] MEDS: ACCU-CHEK COMFORT CURVE STRIP VI SCH (06:58)
[2025-08-23] MEDS: ENOXAPARIN SOD 40 MG/0.4 ML SYRINGE SC SCH (10:36)
[2025-08-23] MEDS: PANTOPRAZOLE 40 MG/10 ML VIAL INJ IV SCH (10:36)
[2025-08-23] MEDS ORDERED: TRAM50TA2 PO (15:52)
[2025-08-23] MEDS ORDERED: LATA0.008 EACHEYE (15:59)
[2025-08-23] MEDS ORDERED: CYA100I IM (18:33)
[2025-08-23] MEDS ORDERED: FLUT50SP (18:33)
[2025-08-23] MEDS ORDERED: [UNRECOGNIZED DRUG - CODE] IM (18:33)
[2025-08-23] MEDS ORDERED: KRIL1CAP11 PO (18:33)
[2025-08-23] MEDS ORDERED: CALC667C PO (18:33)
[2025-08-23] MEDS ORDERED: UPAD15TA PO (18:33)
[2025-08-23] MEDS ORDERED: ZINC220C8 PO (18:33)
[2025-08-23] MEDS ORDERED: [UNRECOGNIZED DRUG - CODE] PO (18:33)
[2025-08-23] MEDS: ACETAMINOPHEN 325 MG TAB PO PRN (21:19)
--- NOTE | 2025-08-23 22:19 | DVHSR ---
APPROVED REPORT EXAM: LIMITED Two-dimensional and M-mode echocardiogram with Doppler and color Doppler. Blood Pressure: 126/71 mmHg INDICATION Braadycardia RISK FACTORS Height: 5' 11", Weight: 165 DIMENSIONS LVDd4.2 (3.8-5.7cm)LA (2D)4.1 (1.9-4.0cm)Aortic Root4.0 (2.0-3.7cm) LVDs3.4 (2.5-4.0cm)LA (MM) (1.9-4.0cm)Aortic Cusp Exc1.6 (1.5-2.0cm) EF (%) 45.0 (55-70%)Rt. Atrium (1.9-4.0cm)Asc. Aorta cm IVSd1.9 (0.7-1.1cm)RV (D) (1.8-2.4cm) PWd1.2 (0.7-1.1cm) Mitral Valve MitralMitral Stenosis E wave0.40m/sMV Mean GR.mmHg A wave0.80m/sMV Peak GR.mmHg E/A ratio0.52D MVAcm2 Aortic Valve Aortic ValveAortic Stenosis V10.40m/Ulises Mean GR.3mmHg V20.90m/Ulises Peak GR.4mmHg LVOT Diameter2.4 (1.8-2.4cm)Doppler AVA2.01cm2 Other Information Quality : Technically LimitedRhythm : Technically limited study due to body habitus. Conclusion SLIGHTLY DILATED LV MILD LV GLOBAL HYPOKINESIS SEVERE DYSKINESIS OF IVS LV EF IS IN RANGE OF 40% MODERATELY DILATED RV NORMAL VALVES NO EFFUSION
--- NOTE | 2025-08-24 | DVHINCON2 ---
Date of service: Aug 23, 2025 Referring Physician Agatha Reason for Consultation Bradycardia, Chest pain History of Present Illness This is an 80-year-old male with a PMH of Prostate cancer, arthritis, thyroid disease, hyperlipidemia who was transferred to [facility] from [facility] as higher-level care for cardiac evaluation. [facility] consulted with atg java developer, Dr. Cohen, who recommended transfer to [facility]. Dr. Wolf is the patient's primary atg java developer. Patient presented with complaints of lightheadedness. Patient was noted to have a low heart rate in the 40s in his PCP office. Patient endorsed he has been having substernal / epigastric pain for three days. Also endorsed episodes of shortness of breath and nausea. Patient states he may have felt dizzy because of a low blood sugar. While awaiting transfer from [facility], he did have an episode of VTAC with 11 to 15 beats. Initial work up at [facility] was essentially unremarkable with negative troponins x2. CTA of the chest was without any acute findings, negative for PE or dissection. On arrival to [facility] troponin levels positive 61/55. Patient was admitted to the hospital. I am asked to consult on this patient. Family History: Alzheimer's disease Diabetes mellitus G8 MOTHER G8 FATHER G8 SISTER FH: dementia G8 MOTHER Hypertension G8 MOTHER G8 FATHER Allergies: Coded Allergies: NO KNOWN ALLERGIES (Unverified , 09/22/17) Home Meds Reported Medications Upadacitinib (Rinvoq) 15 Mg Tab, 15 MG PO, TAB 08/23/25 Calcium Acetate (Phosphate Bin (Calcium Acetate) 667 Mg Cap, 1334 MG PO TIDWM for 30 Days, MG 08/23/25 Krill Oil (Krill Oil 500 mg) 1 Cap Cap, CAP PO, CAP 08/23/25 Zinc Sulfate (Zinc Sulfate) 220 Mg Cap, 220 MG PO DAILY for 30 Days, MG 08/23/25 Vitamin B12 (Vitamin B-12) 1,000 Mcg/1 Ml Ij, 1000 MCG IM, INJ 08/23/25 Leuprolide Acetate (4 Month) (Lupron Depot) 30 Mg Inj, 30 MG IM, INJ 08/23/25 Simethicone (Simethicone) 40 Mg/0.6 Ml Mendez, 40 MG PO QID, MG 08/23/25 Fluticasone Propionate (Nasal) (Fluticasone Propionate) 50 Mcg/Act Spr, 50 MCG NA, SPR 08/23/25 Latanoprost (LATANOPROST) 0.005 % Cherrie, 1 DROP EACHEYE QPM, #7.5 ML 3 Refills 08/23/25 Tramadol Hcl (Tramadol Hcl) 50 Mg Tab, 50 MG PO, TAB 08/23/25 Upadacitinib (Rinvoq) 15 Mg Tab, 15 MG PO DAILY, #1 TAB 02/18/21 Ipratropium [place] (Ipratropium [place]) 0.03 % Spr, 0.03 % NA BID, #1 SPRAY 02/18/21 Ascorbic Acid (VITAMIN C TABLET) 500 Mg Tb, 1 TAB PO DAILY, #30 TAB 3 Refills 09/22/17 Krill Oil (Megared Kingman-3 Krill Oil 500 mg) 1 Cap Cap, 1 CAP PO DAILY, CAP 09/22/17 Methotrexate Sodium (Methotrexate Sodium) 50 Mg/2 Ml Inj, 1 ML IJ QWEEKLY, INJ 09/22/17 Diclofenac Sodium (Diclofenac Sodium Dr) 75 Mg Tab, 1 TAB PO BID, #60 TAB 1 Refill 09/22/17 Hydroxychloroquine Sulfate (Hydroxychloroquine Sulfat) 200 Mg Tab, 200 MG PO BID for 30 Days, MG 09/22/17 Prednisone (Deltasone) 20 Mg Tab, 20 MG PO DAILY, TAB 09/22/17 Leflunomide (Arava) 20 Mg Tab, 1 TAB PO DAILY, #30 TAB 09/22/17 Omeprazole (PRILOSEC) 20 Mg Cap, 20 MG PO DAILY for 30 Days, MG 09/22/17 Ferrous Sulfate (Ferrous Sulfate) 325 Mg Tab, 325 MG PO TIDWM for 30 Days 09/22/17 Simvastatin (Simvastatin) 20 Mg Tab, 20 MG PO DAILY for 30 Days 09/22/17 Loperamide Hcl (Loperamide Hcl) 2 Mg Cap, 2 MG PO TID, MG 09/22/17 Gabapentin (Gabapentin) 300 Mg Cap, 300 MG PO TID for 30 Days, MG 09/22/17 Leuprolide Acetate (3 Month) (Lupron Depot) 22.5 Mg Inj, 22.5 MG IM [id number], INJ 09/22/17 Insulin Lispro (Human) (Humalog) 100 Mg/Ml Inj, 10 UNITS SC TID, INJ 09/22/17 Insulin Glargine (Lantus) 100 Unit/Ml Inj, 15 UNIT SC DAILY, INJ 09/22/17 Folic Acid (Folic Acid) 1 Mg Tab, 1 MG PO DAILY for 30 Days, MG 09/22/17 Levothyroxine Sodium (Levothyroxine Sodium) 137 Mcg Tab, 137 MCG PO QAM for 30 Days 09/22/17 Lisinopril (Lisinopril) 5 Mg Tab, 2.5 MG PO DAILY for 30 Days, MG 09/22/17 Metformin Hydrochloride (Metformin Hcl) 1,000 Mg Tab, 1 TAB PO BID, #60 TAB 5 Refills 09/22/17 Current Medications Current Medications Medications (Trade) Dose Ordered Sig/Jay Route PRN Reason Start Time Stop Time Status Last Admin Docusate Sodium (Colace Capsule) 100 mg BIDPRN PRN PO FOR CONSTIPATION 08/23/25 04:30 Acetaminophen (Tylenol Tablet) 650 mg Q6HP PRN PO PAIN SCALE 1-3 OR TEMP>100.4 08/23/25 04:30 08/23/25 21:19 Ondansetron HCl (Zofran) 4 mg Q4HP PRN IV NAUSEA / VOMITING 08/23/25 04:30 Enoxaparin Sodium (Lovenox) 40 mg DAILY SC 08/23/25 10:00 08/23/25 10:36 Nitroglycerin (Ntrostat Sublingual) 0.4 mg Q5MINP PRN SL FOR CHEST PAIN 08/23/25 04:30 Morphine Sulfate 2 mg Q30M PRN IV FOR CHEST PAIN 08/23/25 04:30 Diagnostic Test (Pha) (Accu-Chek Comfort Curve T) 1 strip ACHS 08/23/25 07:00 08/23/25 06:58 Insulin Human Regular (InsuLIN R) ACHS SC 08/23/25 07:00 Dextrose 50 ml UD PRN IV Blood Sugar LESS THAN 60 08/23/25 04:30 Pantoprazole Sodium (Protonix) 40 mg DAILY IV 08/23/25 10:00 08/23/25 11:28 DC 08/23/25 10:36 Aspirin 81 mg DAILY PO 08/23/25 10:00 08/23/25 10:36 Carvedilol (Coreg Tablet) 3.125 mg DAILY@BREAKFAST PO 08/24/25 08:00 Review of Systems CONSTITUTIONAL: Denies acute: fever, diaphoresis, chills, HEAD: Denies acute: headache, photophobia Eyes: Denies acute: Double vision, vision loss, eye pain, eye discharge. EARS: Denies acute: tinnitus, hearing loss, ear discharge, ear pain, THROAT: Denies acute: sore throat, swelling, difficulty swallowing , pain with swallowing, change in voice. NECK: Denies acute: neck pain, neck swelling, stiff neck. HEART: Denies acute : chest pain, palpitations, LUNGS: Denies acute: SOB, wheezing, cough, hemoptysis ABDOMEN: Denies acute: abdominal pain, Nausea, Vomiting, diarrhea, melena , hematemesis, hematochezia SKIN: Denies acute: rash, redness, lesions, itchiness. EXTREMITIES: Denies acute: calf pain, numbness, tingling, weakness, denies pain in extremity. Denies acute: Low back pain. Neuro: Denies acute: focal neurological deficit, motor or sensory focal neurological deficit, tremors, seizure like activity, confusion, dizziness, change in mental status, loss of bowel or bladder function, cauda equina like symptoms. : Denies acute: dysuria, hematuria, flank pain, increase in urinary frequency. PSYCH: Denies acute: hallucination, suicidal ideation, homicidal ideation. Vital Signs Vital Signs Date Time Temp Pulse Resp B/P (MAP) Pulse Ox O2 Delivery O2 Flow Rate FiO2 08/23/25 17:00 97.4 73 20 133/84 (100) 95 97.4 08/23/25 08:00 Room Air* 0 21 Physical Exam GENERAL: Alert and oriented x 3. No acute distress. EYES: PERRL, EOMI. Anicteric. HENT: Moist mucous membranes. LUNGS: Clear to auscultation bilaterally. CARDIOVASCULAR: Regular rate and rhythm. ABDOMEN: Soft, nontender and nondistended. EXTREMITIES: No edema. NEUROLOGIC: No focal neurological deficits. SKIN: Warm, dry. Labs/Diagnostic Data Labs Test 08/23/25 21:21 08/23/25 14:43 08/23/25 03:55 Range/Units POC Glucose 157 H 70-106 mg/dl Troponin I High Sensitivity 58 *H </=54 ng/L White Blood Count 4.5 4.4-10.8 10^3/uL Red Blood Count 3.32 L 4.5-5.90 10^6/uL Hemoglobin 11.1 L 13.5-17.5 g/dL Hematocrit 32.6 L 41.0-53.0 % Mean Corpuscular Volume 98.1 80.0-100.0 fL Mean Corpuscular Hemoglobin 33.3 H 28.0-32.0 pg Mean Corpuscular Hemoglobin Concent 34.0 32.0-36.0 g/dL Red Cell Distribution Width 16.8 H 11.8-14.3 % Platelet Count 305 140-450 10^3/uL Mean Platelet Volume 6.3 L 6.9-10.8 fL Neutrophils (%) (Auto) 65.5 37.0-80.0 % Lymphocytes (%) (Auto) 28.4 10.0-50.0 % Monocytes (%) (Auto) 2.6 0.0-12.0 % Eosinophils (%) (Auto) 2.7 0.0-7.0 % Basophils (%) (Auto) 0.8 0.0-2.0 % Neutrophils # (Auto) 2.9 1.6-8.6 10 ^3/uL Lymphocytes # (Auto) 1.3 0.4-5.4 10 ^3/uL Monocytes # (Auto) 0.1 0-1.3 10 ^3/uL Eosinophils # (Auto) 0.1 0-0.8 10 ^3/uL Basophils # (Auto) 0 0-0.2 10 ^3/uL Nucleated Red Blood Cells 0.0 % Prothrombin Time 10.7 9.3-11.8 sec Prothrombin Time INR 1.01 0.9-1.15 Sodium Level 140 136-145 mmol/L Potassium Level 4.1 3.5-5.1 mmol/L Chloride Level 105 98-107 mmol/L Carbon Dioxide Level 26 20-31 mmol/L Anion Gap 9 5-15 Blood Urea Nitrogen 17 9-23 mg/dL Creatinine 1.20 0.700-1.30 mg/dL Glomerular Filtration Rate Calc 61 >90 mL/min BUN/Creatinine Ratio 14.2 10.0-20.0 Serum Glucose 135 H 74-106 mg/dL Calcium Level 10.1 8.7-10.4 mg/dL Magnesium Level 2.0 1.6-2.6 mg/dL Total Bilirubin 0.7 0.2-1.0 mg/dL Aspartate Amino Transferase (AST) 65 H 13-40 U/L Alanine Aminotransferase (ALT) 65 H 7-40 U/L Alkaline Phosphatase 74 46-116 U/L B-Type Natriuretic Peptide 347.81 0-100 pg/mL Total Protein 7.0 5.7-8.2 g/dL Albumin 4.4 3.2-4.8 g/dL Assessment Symptomatic bradycardia. Elevated troponin. Episode of VTAC. DM. Plan/Recommendation I agree with your ongoing assessment and care of plan. Telemetry reviewed. Cardiac cath. Risks and benefits discussed with the patient. Echocardiogram. Aspirin. Coreg. DVT prophylactics. Nitro SL. Morphine for pain management. Additional plan as per the hospital course. A total of 45 minutes was spent reviewing the patient record, examining the patient, making a diagnostic and therapeutic plan, discussing this plan with medical personnel, following up on diagnostic studies and following the patient for clinical stability excluding any and all procedures. At least 50% of this time was spent in direct, [id number] contact. Plan discussed with: Patient KAYLEEN SINCLAIR MD Aug 23, 2025 21:50
[2025-08-24 01:00] VITALS: BP 134/84; PULSE 73; RESP 16; TEMP 97.6; O2SAT 93
[2025-08-24 05:00] VITALS: BP 136/70; PULSE 63; RESP 15; TEMP 97.7; O2SAT 96
[2025-08-24 07:34] LABS: Hematocrit 34.9 % (41.0-53.0); Hemoglobin 11.8 g/dL (13.5-17.5); Mean Corpuscular Hemoglobin 33.3 pg (28.0-32.0); Mean Corpuscular Volume 98.0 fL (80.0-100.0); Nucleated Red Blood Cells % 0.1 %
[2025-08-24 07:46] LABS: Anion Gap 10 (5-15); Carbon Dioxide 25 mmol/L (20-31); Chloride 107 mmol/L (98-107); Potassium 4.7 mmol/L (3.5-5.1); Sodium 142 mmol/L (136-145)
[2025-08-24 07:48] LABS: Calcium 9.2 mg/dL (8.7-10.4)
[2025-08-24 07:52] LABS: BUN/Creatinine Ratio 15.4 (10.0-20.0); Blood Urea Nitrogen 18 mg/dL (9-23); Glucose 82 mg/dL (74-106)
[2025-08-24 08:00] VITALS: PULSE 64; PULSE 78; RESP 18; O2SAT 97
[2025-08-24] MEDS: CARVEDILOL 3.125 MG TAB PO SCH (08:00)
[2025-08-24 09:00] VITALS: BP 130/66; PULSE 64; RESP 18; TEMP 97.1; O2SAT 97
--- NOTE | 2025-08-24 12:57 | DVHPN2 ---
Progress Note - Dictate Date Seen: Aug 24, 2025 Medical Necessity Reason Pt with a Central, PICC or Fol: No Subjective Clinically stable. After stopping the Toprol-XL is heart rate is now normal in the 80s to 90s. Patient remains asymptomatic. Evaluated by Cardiology and scheduled for coronary angiogram for tomorrow. vital signs Vital Sign Date Time Temp Pulse Resp B/P (MAP) Pulse Ox O2 Delivery O2 Flow Rate FiO2 08/24/25 09:00 97.1 64 18 130/66 (87) 97 97.1 08/23/25 20:00 Room Air* 0 21 Total Intake and Output 08/23/25 08/23/25 08/24/25 15:00 23:00 07:00 Intake Total 180 ml 120 ml 225 ml Output Total 600 ml Balance 180 ml 120 ml -375 ml medications Current Medications Medications Dose Ordered Sig/Jay Route Start Time Stop Time Status Last Admin Dose Admin Docusate Sodium 100 mg BIDPRN PRN PO 08/23/25 04:30 Acetaminophen 650 mg Q6HP PRN PO 08/23/25 04:30 08/23/25 21:19 650 MG Ondansetron HCl 4 mg Q4HP PRN IV 08/23/25 04:30 Enoxaparin Sodium 40 mg DAILY SC 08/23/25 10:00 08/23/25 10:36 40 MG Nitroglycerin 0.4 mg Q5MINP PRN SL 08/23/25 04:30 Morphine Sulfate 2 mg Q30M PRN IV 08/23/25 04:30 Diagnostic Test (Pha) 1 strip ACHS 08/23/25 07:00 08/24/25 06:39 1 STRIP Insulin Human Regular ACHS SC 08/23/25 07:00 08/23/25 22:38 2 UNITS Dextrose 50 ml UD PRN IV 08/23/25 04:30 Aspirin 81 mg DAILY PO 08/23/25 10:00 08/23/25 10:36 81 MG Carvedilol 3.125 mg DAILY@BREAKFAST PO 08/24/25 08:00 objective Comfortable in bed. Family is at bedside. Alert awake oriented x3. HEENT neck supple no JVD. Heart regular rate and rhythm S1 and S2. Lungs fair air movement without rales wheezes. Abdomen soft nontender positive bowel sounds. Extremities no edema positive pulses. laboratory and microbiology Laboratory Tests 08/24/25 06:10 Test 08/24/25 06:10 Range/Units Serum Glucose 82 74-106 mg/dL Assessment/Plan NPO after midnight and proceed with a coronary angiogram per recommendations from Cardiology. Meantime given his heart rate in the high normal range I will continue Coreg once a day given his bradycardia history. Otherwise continue rest of supportive care and treatment and further clinical management per clinical course and angiogram findings. Discussed with the patient/family who is at bedside regarding care plan. Problems(with codes): (1) Left knee DJD (2) Bradycardia (3) V tach (4) Elevated troponin Plan discussed with: Patient GODWIN TOLEDO MD Aug 24, 2025 12:56
[2025-08-24 13:00] VITALS: BP 141/88; PULSE 85; RESP 18; TEMP 97.1; O2SAT 95
[2025-08-24] MEDS ORDERED: CARV3.1240 PO (13:36)
--- NOTE | 2025-08-24 13:38 | DVHDS2 ---
Discharge Summary Date of Admission Aug 23, 2025 at 04:26 Date of Discharge: Aug 24, 2025 Labs/Diagnostic Data: Laboratory Results Test 08/24/25 12:37 08/24/25 06:10 08/23/25 03:55 POC Glucose 122 mg/dl (70-106) White Blood Count 4.5 10^3/uL (4.4-10.8) Red Blood Count 3.56 10^6/uL (4.5-5.90) Hemoglobin 11.8 g/dL (13.5-17.5) Hematocrit 34.9 % (41.0-53.0) Mean Corpuscular Volume 98.0 fL (80.0-100.0) Mean Corpuscular Hemoglobin 33.3 pg (28.0-32.0) Mean Corpuscular Hemoglobin Concent 34.0 g/dL (32.0-36.0) Red Cell Distribution Width 17.0 % (11.8-14.3) Platelet Count 325 10^3/uL (140-450) Mean Platelet Volume 6.3 fL (6.9-10.8) Neutrophils (%) (Auto) 66.8 % (37.0-80.0) Lymphocytes (%) (Auto) 24.6 % (10.0-50.0) Monocytes (%) (Auto) 4.4 % (0.0-12.0) Eosinophils (%) (Auto) 3.0 % (0.0-7.0) Basophils (%) (Auto) 1.2 % (0.0-2.0) Neutrophils # (Auto) 3.0 10 ^3/uL (1.6-8.6) Lymphocytes # (Auto) 1.1 10 ^3/uL (0.4-5.4) Monocytes # (Auto) 0.2 10 ^3/uL (0-1.3) Eosinophils # (Auto) 0.1 10 ^3/uL (0-0.8) Basophils # (Auto) 0.1 10 ^3/uL (0-0.2) Nucleated Red Blood Cells 0.1 % Sodium Level 142 mmol/L (136-145) Potassium Level 4.7 mmol/L (3.5-5.1) Chloride Level 107 mmol/L (98-107) Carbon Dioxide Level 25 mmol/L (20-31) Anion Gap 10 (5-15) Blood Urea Nitrogen 18 mg/dL (9-23) Creatinine 1.17 mg/dL (0.700-1.30) Glomerular Filtration Rate Calc 63 mL/min (>90) BUN/Creatinine Ratio 15.4 (10.0-20.0) Serum Glucose 82 mg/dL (74-106) Calcium Level 9.2 mg/dL (8.7-10.4) Troponin I High Sensitivity 56 ng/L (</=54) Prothrombin Time 10.7 sec (9.3-11.8) Prothrombin Time INR 1.01 (0.9-1.15) Magnesium Level 2.0 mg/dL (1.6-2.6) Total Bilirubin 0.7 mg/dL (0.2-1.0) Aspartate Amino Transferase (AST) 65 U/L (13-40) Alanine Aminotransferase (ALT) 65 U/L (7-40) Alkaline Phosphatase 74 U/L (46-116) B-Type Natriuretic Peptide 347.81 pg/mL (0-100) Total Protein 7.0 g/dL (5.7-8.2) Albumin 4.4 g/dL (3.2-4.8) Other Laboratory Tests 08/24/25 06:10 Brief Hx & Hospital Course: 80-year-old male was transferred from [facility] as higher-level care for cardiac evaluation. [facility] consulted with pickle pumper, Dr. Cohen, who recommended transfer to [facility]. Dr. Wolf is his pickle pumper. Patient presented with complaints of lightheadedness. Was noted to have a low heart rate in the 40s in his PCP office. Endorsed he has been having substernal / epigastric pain for three days. Also endorsed episodes of shortness of breath and nausea. Patient states he may have felt dizzy because of a low blood sugar. While awaiting transfer from [facility], he did have an episode of VTAC with 11 to 15 beats. Initial work up at [facility] was essentially unremarkable with negative troponins x2. CTA of the chest was without any acute findings, negative for PE or dissection. Imaging disc is in the transfer packet. On arrival to [facility] troponin levels positive 61/55. Patient is also noted to be on Half tablet metoprolol succ. daily. At this time, patient denies fevers, chills, shortness of breath, chest, pain, palpitations, nausea, vomiting, dizziness, syncope, leg, swelling. He is evaluated by on-call pickle pumper recommended outpatient follow up with his own pickle pumper Dr. Wolf in one week for outpatient elective coronary angiogram and further evaluate and manage his nonsustained asymptomatic V-tach as well as bradycardia. While in the hospital patient's Toprol-XL has been discontinued and his heart rate has improved. However given his nonsustained V- tach he is recommended to take Coreg. I have talked to patient and his at bedside regarding his hospital diagnosis, treatment he received, discharge medication adjustments, discharge follow-up plan of care. They have verbalized understanding of this and agree with the care plan as outlined. Given patient is back to baseline normal status without any other symptoms he has been discharged home. I have also talked to Dr. Ramirez on-call Cardiology regarding discharge care plan on the day of discharge. Operations or Procedures APPROVED REPORT EXAM: LIMITED Two-dimensional and M-mode echocardiogram with Doppler and color Doppler. Blood Pressure: 126/71 mmHg INDICATION Braadycardia RISK FACTORS Height: 5' 11", Weight: 165 DIMENSIONS LVDd 4.2 (3.8-5.7cm) LA (2D) 4.1 (1.9-4.0cm) Aortic Root 4.0 (2.0- 3.7cm) LVDs 3.4 (2.5-4.0cm) LA (MM) (1.9-4.0cm) Aortic Cusp Exc 1.6 (1.5- 2.0cm) EF (%) 45.0 (55-70%) Rt. Atrium (1.9-4.0cm) Asc. Aorta cm IVSd 1.9 (0.7-1.1cm) RV (D) (1.8-2.4cm) PWd 1.2 (0.7-1.1cm) Mitral Valve Mitral Mitral Stenosis E wave 0.40m/s MV Mean GR. mmHg A wave 0.80m/s MV Peak GR. mmHg E/A ratio 0.5 2D MVA cm2 Aortic Valve Aortic Valve Aortic Stenosis V1 0.40m/s AO Mean GR. 3mmHg V2 0.90m/s AO Peak GR. 4mmHg LVOT Diameter 2.4 (1.8-2.4cm) Doppler ALTAF 2.01cm2 Other Information Quality : Technically Limited Rhythm : Technically limited study due to body habitus. Conclusion SLIGHTLY DILATED LV MILD LV GLOBAL HYPOKINESIS SEVERE DYSKINESIS OF IVS LV EF IS IN RANGE OF 40% MODERATELY DILATED RV NORMAL VALVES NO EFFUSION SIGNED BY: KAYLEEN RAMIREZ MD SIGNED DATE/TIME: 08/23/25 0279 Condition at Discharge: Stable Final Diagnosis/Problems List non stemi, ascad Discharge Disposition: Home Discharge Instruct/Medications Diet: Consistent carbohydrate, Cardiac 2g Na,low cholest Activity: Light activity Follow Up/Referral: cardiology in one week for coronary angiogram and further evaluation for heart disease Medications: STOP taking Toprol XL. Take coreg as prescribed and other home medications Scheduled Calcium Acetate (Phosphate Bin (Calcium Acetate), 1,334 MG PO TIDWM, (Reported) Carvedilol (Carvedilol), 1 TAB PO BID Ferrous Sulfate (Ferrous Sulfate), 325 MG PO TIDWM, (Reported) Folic Acid (Folic Acid), 1 MG PO DAILY, (Reported) Gabapentin (Gabapentin), 300 MG PO TID, (Reported) Hydroxychloroquine Sulfate (Hydroxychloroquine Sulfat), 200 MG PO BID, (Reported) Insulin Glargine (Lantus), 15 UNIT SC DAILY, (Reported) Insulin Lispro (Human) (Humalog), 10 UNITS SC TID, (Reported) Ipratropium Osborne (Ipratropium Osborne), 0.03 % NA BID, (Reported) Latanoprost (Latanoprost), 1 DROP EACHEYE QPM, (Reported) Leflunomide (Arava), 1 TAB PO DAILY, (Reported) Leuprolide Acetate (3 Month) (Lupron Depot), 22.5 MG IM [id number], (Reported) Levothyroxine Sodium (Levothyroxine Sodium), 137 MCG PO QAM, (Reported) Metformin Hydrochloride (Metformin Hcl), 1 TAB PO BID, (Reported) Omeprazole (Prilosec), 20 MG PO DAILY, (Reported) Simvastatin (Simvastatin), 20 MG PO DAILY, (Reported) Upadacitinib (Rinvoq), 15 MG PO DAILY, (Reported) Zinc Sulfate (Zinc Sulfate), 220 MG PO DAILY, (Reported) Miscellaneous Medications Fluticasone Propionate (Nasal) (Fluticasone Propionate), 50 MCG NA, (Reported) Krill Oil (Krill Oil 500 mg), CAP PO, (Reported) Leuprolide Acetate (4 Month) (Lupron Depot), 30 MG IM, (Reported) Upadacitinib (Rinvoq), 15 MG PO, (Reported) Vitamin B12 (Vitamin B-12), 1,000 MCG IM, (Reported) Discontinued Medications Ascorbic Acid (Vitamin C Tablet), 1 TAB PO DAILY, (Reported) Diclofenac Sodium (Diclofenac Sodium Dr), 1 TAB PO BID, (Reported) Krill Oil (Megared Ladd-3 Krill Oil 500 mg), 1 CAP PO DAILY, (Reported) Lisinopril (Lisinopril), 2.5 MG PO DAILY, (Reported) Loperamide Hcl (Loperamide Hcl), 2 MG PO TID, (Reported) Methotrexate Sodium (Methotrexate Sodium), 1 ML IJ QWEEKLY, (Reported) Prednisone (Deltasone), 20 MG PO DAILY, (Reported) Simethicone (Simethicone), 40 MG PO QID, (Reported) Tramadol Hcl (Tramadol Hcl), 50 MG PO, (Reported) Discharge Statement: "Patient was advised to return to the ER or call 911 if any headaches, dizziness, shortness of breath, chest pain, abdominal pain, bleeding, fevers, or worsening of medical condition. Patient was counseled about treatment plan, medications, possible side effects, patientverbalized understanding. All questions were answered to the best of my ability. This discharge took greater then 30 minutes in planning, reviewing documentation, counseling the patient, and discussing with other team members." ASSESSMENT ASSESSMENT Assessment non stemi, GODWIN Braga MD Aug 24, 2025 13:38
[2025-08-24] MEDS ORDERED: MUPIROCIN 2% OINT 15gm or 22gm FOR MRSA NARES EACHNOSTRI SCH (22:00)
--- NOTE | 2025-08-24 22:11 | DVHPN2 ---
Progress Note - Dictate Date Seen: Aug 24, 2025 Medical Necessity Reason Pt with a Central, PICC or Fol: No Subjective Patient was seen and evaluated in follow up. After stopping the Toprol-XL is heart rate is now normal in the 80s to 90s. Patient is scheduled for coronary angiogram tomorrow. TROP 56. Telemetry reviewed. vital signs Vital Sign Date Time Temp Pulse Resp B/P (MAP) Pulse Ox O2 Delivery O2 Flow Rate FiO2 08/24/25 09:00 97.1 64 18 130/66 (87) 97 97.1 08/23/25 20:00 Room Air* 0 21 Total Intake and Output 08/23/25 08/23/25 08/24/25 15:00 23:00 07:00 Intake Total 180 ml 120 ml 225 ml Output Total 600 ml Balance 180 ml 120 ml -375 ml medications Current Medications Medications Dose Ordered Sig/Jay Route Start Time Stop Time Status Last Admin Dose Admin Docusate Sodium 100 mg BIDPRN PRN PO 08/23/25 04:30 Acetaminophen 650 mg Q6HP PRN PO 08/23/25 04:30 08/23/25 21:19 650 MG Ondansetron HCl 4 mg Q4HP PRN IV 08/23/25 04:30 Enoxaparin Sodium 40 mg DAILY SC 08/23/25 10:00 08/23/25 10:36 40 MG Nitroglycerin 0.4 mg Q5MINP PRN SL 08/23/25 04:30 Morphine Sulfate 2 mg Q30M PRN IV 08/23/25 04:30 Diagnostic Test (Pha) 1 strip ACHS 08/23/25 07:00 08/24/25 06:39 1 STRIP Insulin Human Regular ACHS SC 08/23/25 07:00 08/23/25 22:38 2 UNITS Dextrose 50 ml UD PRN IV 08/23/25 04:30 Aspirin 81 mg DAILY PO 08/23/25 10:00 08/23/25 10:36 81 MG Carvedilol 3.125 mg DAILY@BREAKFAST PO 08/24/25 08:00 Mupirocin 1 applic BID EACHNOSTRI 08/24/25 22:00 08/29/25 21:59 objective GENERAL: Alert and oriented x 3. No acute distress. EYES: PERRL, EOMI. Anicteric. HENT: Moist mucous membranes. LUNGS: Clear to auscultation bilaterally. CARDIOVASCULAR: Regular rate and rhythm. ABDOMEN: Soft, nontender and nondistended. EXTREMITIES: No edema. NEUROLOGIC: No focal neurological deficits. SKIN: Warm, dry. laboratory and microbiology Laboratory Tests 08/24/25 06:10 Test 08/24/25 06:10 Range/Units Serum Glucose 82 74-106 mg/dL Problem List Symptomatic bradycardia. Elevated troponin. Episode of VTAC. DM. Assessment/Plan Continued all current supportive medical care. Echocardiogram. NPO after midnight and proceed with a coronary angiogram. Nitro SL. Morphine for pain management. Coreg. Additional plan as per the hospital course. Plan discussed with: Patient KAYLEEN SINCLAIR MD Aug 24, 2025 14:34
== END 2025-08-24 18:00 | disposition home or self-care (01) | DRG 281 ==
LOC: ER 01:29 → OVERFLOW 04:26 → TELE-WESTW 06:22
PROVIDERS: ADMIT Nurse Practitioner Family; ATTEND Nurse Practitioner Family
DX: I21.4 Non-ST elevation (NSTEMI) myocardial infarction (principal); I47.20 Ventricular tachycardia, unspecified; E78.5 Hyperlipidemia, unspecified; I10 Essential (primary) hypertension; I25.10 Atherosclerotic heart disease of native coronary artery without angina pectoris; E11.9 Type 2 diabetes mellitus without complications; Z82.49 Family history of ischemic heart disease and other diseases of the circulatory system; Z82.0 Family history of epilepsy and other diseases of the nervous system; Z79.4 Long term (current) use of insulin; Z79.84 Long term (current) use of oral hypoglycemic drugs; Z79.899 Other long term (current) drug therapy; Z96.652 Presence of left artificial knee joint; Z85.46 Personal history of malignant neoplasm of prostate; Z83.3 Family history of diabetes mellitus
CPT/HCPCS: 36415; 71045; 80048; 80053; 82962; 83735; 83880; 84484; 85025; 85610; 87077; 87081; 87186; 87205; 93005; 93306; 96372; 96374; 97163; 99291; G0378; J1815; J2470

== ENCOUNTER 2025-09-22 08:00 | Inpatient (IN) | payer OTHER ==
[2025-09-22] VITALS (11 sets, daily range): BP systolic 125–145; BP diastolic 66–81; PULSE 62–78; RESP 10–21; TEMP 97.8–100.3; O2SAT 96–99
[~2025-09-22] VITALS: Ht 177.8 cm; Wt 75.0 kg
[~2025-09-22 08:00] MED LIST changes: +AMOX250T8 PO; +ASPI-543 PO; +CARV3.1240 PO; +CYA100I IM; +FLUT50SP; -INSLANTI SC; -INSLISPI SC; +KRIL1CAP11 PO; -KRIL1CAP9 PO; +LATA0.008 EACHEYE; -LEUP22.52 IM; -LISI-275 PO; +METF-370 PO; -METF-372 PO; -METH5INJ IJ; +METO25TA5 PO; +POM INJ; +POM PO; -PRED-559 PO; +TIZA4CAP PO; +ZINC50TA7 PO
[2025-09-22] MEDS: MIDAZOLAM HCL 2MG/2ML 2ml VIAL (1mg/ml) ONE (10:22)
[2025-09-22] MEDS: VERAPAMIL 2.5MG/ML INJ 2ML VIAL IV ONE (10:22)
[2025-09-22] MEDS: fentaNYL CITRATE 100 MCG/2 ML VL ONE (10:22)
[2025-09-22] MEDS: SODIUM CHL 0.9% 50 ML ONE (10:22)
[2025-09-22] MEDS: ANGIOMAX 250 MG VIAL IV ONE (10:22)
[2025-09-22] MEDS: HEPARIN SODIUM (PORCINE) 5000 UNITS/ML 1ML VIAL ONE (10:22)
[2025-09-22] MEDS: LIDOCAINE 2%HCL (LOCAL ANESTH.) INJ 20ML MDV ONE (10:22)
--- NOTE | 2025-09-22 11:47 | DVHOP2 ---
Operative Report Operative Report CARDIAC BUNDLE TIER AND LABELER PROCEDURE REPORT [place], [place] Date of Service: 09/22/25 Structures Mechanic: Rusty Heredia MD PROCEDURES PERFORMED: Coronary angiogram, left heart catheterization, conscious sedation administration and supervision, less than 15 minutes; fluoroscopy use and interpretation. PREOPERATIVE DIAGNOSES: Abnormal stress test with CCS class 3 angina, POSTOP DIAGNOSIS: DESCRIPTION OF PROCEDURE: The patient or appropriate family signed informed consent understanding the risks, benefits and alternatives of the procedure, they wished to proceed. The patient was brought to the cardiac laboratory secretary in n.p.o. state. The patient was prepped in a sterile fashion. Sedation was used per cardiac cath protocol. I administered 2 mL of 2% lidocaine to the right wrist. With an antegrade front wall puncture. I cannulated the right radial artery and placed a 6-[place] [employer] Glidesheath slender. Next, an intra-arterial spasmolytic was administered. I tried to wire with glide but there was a bad raddial loop. after trying to wire for 1-2 mins with angiogram, we had to abandaon radial access given severe radial loop. Next, an intra-arterial spasmolytic was administered. I used US guidance to identify the R [employer]AR[employer] LAMINATOR which was patent and with micro access after givin 6cc of lidocaine i gained access saved to pacs system using US guidance and punctured artery and placed a 6F sheath. the iliac artery was very very tortuous as well . I used a 6F JL4 and JR4 were used for coronary angiogram and LVEDP measurement and pressure pullback. FINDINGS: RCA: Moderate vessel off the right sinus of Valsalva, there is no severe flow limiting stenosis. heavy calcification. mild diffuse plaquing. LEFT MAIN: Moderate size left main, it bifurcates into LAD and circumflex. no severe stenosis CIRCUMFLEX: Moderate caliber vessel coming off the left main. prox CX has a 50- 60% focal stenosis LAD: LAD is a moderate caliber vessel coming of the left main. prox LAD has a heavily calcific eccentric 80% stenosis. INTERVENTION: We decided to proceed with coronary intervention. I started with a 6F _XB 3.5 ___ Guide to intubate the LM __. Angiomax bolus and gtt was started. Following this, I decided to wire using an .014 BMW across the culprit lesion with ease. At this time, we performed balloon angioplasty with a _2.5 x 12 mm balloon by [email or web address] medical IV balloon up to _but it didnt cross SO i had to use a 2.5 x 12 mm balloon up to 20 atms with 2 inflations and then a 3.o x 12 mm NC up to 20 atms with 1 __ number of inflations. Following this, I decided to place a stent using a 3.0 x12 mm onyx____ stent inflated up to __18___ ATMS over 15 seconds with two separate inflations. I post dilated with a 3.5 NC up to 12 atms for 15 seconds. Following this, the stent balloon removed and angio performed showing 0% residual stenosis. There was sluggish flow in the diagnoal artery given tortuosity but no ecg changes or symptoms. I gave 150 mcg of intracoronary nitroglycerin as well. JANUSZ pre/post: 3./3 CONCLUSIONS: 1. sp pci to prox LAD 80% stenosis PLAN: Aggressive risk factor modification and medical management for the patient. DAPT x 1 year uninterrupted RUSTY HEREDIA MD Sep 22, 2025 11:47
[2025-09-22] MEDS: TICAGRELOR 90 MG TAB ONE (11:52)
[2025-09-22] MEDS ORDERED: NITROGLYCERIN 0.4 MG SL TAB SL PRN ×2 (12:00→12:45)
[2025-09-22] MEDS ORDERED: MORPHINE SULFATE INJ 2 MG/ml SYRG IV PRN ×2 (12:00→12:45)
[2025-09-22] MEDS ORDERED: ONDANSETRON HCL 4 MG/2 ML VIAL IV PRN (12:45)
--- NOTE | 2025-09-22 12:48 | DVHHP2 ---
History of Present Illness Reason for Visit: Chest discomfort came in for elective coronary angiogram History of Present Illness 80-year-old gentleman with a atherosclerotic coronary artery disease came to the hospital underwent elective coronary angiogram with coronary artery stent placement by his dust sampler. Post up overnight I was asked to admit this patient by dust sampler for further monitoring. Currently patient is pain-free. Denies any shortness for breath. Cardiovascular: CAD, HTN, hyperipidemia Past Surgical History: None Family History: CAD, Hypertension Smoke: No ALCOHOL: rare Lives: with Family Review of Systems Review of Systems No fevers chills or sweats. No chest pain dizziness lightheadedness. No shortness for breath. Other review of systems reviewed normal. Allergies: Coded Allergies: NO KNOWN ALLERGIES (Unverified , 09/17/25) Medications Current Medications Medications Dose Ordered Sig/Jay Route Start Time Stop Time Status Last Admin Dose Admin Nitroglycerin 0.4 mg Q5MINP PRN SL 09/22/25 12:00 Morphine Sulfate 2 mg Q30M PRN IV 09/22/25 12:00 Clopidogrel Bisulfate 75 mg DAILY PO 09/23/25 10:00 Aspirin 81 mg DAILY PO 09/23/25 10:00 UNV Carvedilol 3.125 mg BID PO 09/22/25 22:00 UNV Fluticasone Propionate 50 mcg DAILY NA 09/23/25 10:00 UNV Gabapentin 600 mg TID PO 09/22/25 14:00 UNV Hydroxychloroquine Sulfate 200 mg BID PO 09/22/25 22:00 UNV Latanoprost 1 drop QPM EACHEYE 09/22/25 18:00 UNV Patient Own Medication 1 mg DAILY PO 09/23/25 10:00 UNV Patient Own Medication 137 mcg QAM PO 09/23/25 07:00 UNV Patient Own Medication 40 mg DAILY PO 09/23/25 10:00 UNV Patient Own Medication 20 mg DAILY PO 09/23/25 10:00 UNV Nitroglycerin 0.4 mg Q5MINP PRN SL 09/22/25 12:45 UNV Morphine Sulfate 2 mg Q30M PRN IV 09/22/25 12:45 UNV Ondansetron HCl 4 mg Q4HPRN PRN IV 09/22/25 12:45 UNV Exam Exam Pleasant gentleman alert awake oriented x3. HEENT neck supple no JVD. Heart regular rate and rhythm S1-S2. Lungs fair air movement without rales wheezes. Abdomen soft nontender positive bowel sounds. Extremities no edema positive pulses. SEPSIS Sepsis Screen Physician Orders Cl Left Heart Cath (09/22/25 07:22) Admit (09/22/25 11:48) Nitroglycerin Sublingual (Ntrostat Subli (09/22/25 12:00) Morphine Sulfate Injection (09/22/25 12:00) Stat Ekg For Chest Pain (09/22/25 11:48) Notify Md Of Changes From Base (09/22/25 11:48) Diagnostic Technician For 24 Hours (09/22/25 11:48) Emergency Dysrhythmia Protocol (09/22/25 11:48) Rhythm Strips Once Every Shift (09/22/25 11:48) Oxygen By Nasal Cannula (09/22/25 11:48) Clopidogrel Bisulfate (Plavix) (09/22/25 20:00) Clopidogrel Bisulfate (Plavix) (09/23/25 10:00) Aspirin Enteric Coated Tablet (Ecotrin E (09/23/25 10:00) Carvedilol Tablet (Coreg Tablet) (09/22/25 22:00) Fluticasone Nasal [place] (Flonase [place]) (09/23/25 10:00) Gabapentin Capsule (Neurontin Capsule) (09/22/25 14:00) Hydroxychloroquine Tablet (Plaquenil Tab (09/22/25 22:00) Latanoprost (Xalatan) (09/22/25 18:00) (Nf) Folic Acid (09/23/25 10:00) (Nf) Levothyroxine Sodium (09/23/25 07:00) (Nf) Omeprazole (Prilosec) (09/23/25 10:00) (Nf) Simvastatin (09/23/25 10:00) Admit (09/22/25 12:44) Consistent Carb(Ccho)Diabetes (09/22/25 Lunch) *Consult Dr. Wolf (09/22/25 12:44) Pt Request For Service (09/22/25 12:44) Nitroglycerin Sublingual (Ntrostat Subli (09/22/25 12:45) Morphine Sulfate Injection (09/22/25 12:45) Oxygen By Nasal Cannula (09/22/25 12:44) Ondansetron Hcl (Zofran) (09/22/25 12:45) Comprehensive Metabolic Panel (09/23/25 04:00) Complete Blood Count (09/23/25 04:00) Glucose Blood (Accu-Chek Comfort Curve T (09/22/25 17:00) Mild Sliding Scale (09/22/25 17:00) Dextrose 50% Syringe (09/22/25 13:00) Medications Medications Dose Ordered Sig/Jay Route Start Time Stop Time Status Last Admin Dose Admin Aspirin 81 mg STK-MED ONCE .ROUTE 09/22/25 11:39 09/22/25 11:39 DC 09/22/25 11:52 81 MG Bivalirudin 250 mg STK-MED ONCE IV 09/22/25 10:22 09/22/25 10:22 DC 09/22/25 10:22 250 MG Fentanyl Citrate 100 mcg STK-MED ONCE .ROUTE 09/22/25 10:22 09/22/25 10:22 DC 09/22/25 10:22 100 MCG Midazolam HCl 2 mg STK-MED ONCE .ROUTE 09/22/25 10:22 09/22/25 10:22 DC 09/22/25 10:22 2 MG Ticagrelor 180 mg STK-MED ONCE .ROUTE 09/22/25 11:32 09/22/25 11:32 DC 09/22/25 11:52 180 MG Assessment/Plan Assessment/Plan Atherosclerotic coronary artery disease status post coronary angiogram with LAD stent placement. We will admit him overnight for cardiac monitoring. Continue aspirin statin and Plavix as well as his home cardiac and other medications as he is taking. Follow the labs in the morning. If he remains stable and pain- free can be discharged home in the next 24 hours with a dual antiplatelet therapy and statin as well as aggressive risk factor modification. Discussed with the patient regarding control of his risk factors including good blood pressure and cholesterol control. Plan discussed with: Patient, Other My Orders Orders - GODWIN TOLEDO MD Procedure Category Date Status Time Aspirin Enteric PHA 09/23/25 Logged Coated Tablet 10:00 Carvedilol Tablet PHA 09/22/25 Logged (Coreg Tablet) 22:00 Fluticasone Nasal PHA 09/23/25 Logged [place] (Flonase [place]) 10:00 Gabapentin Capsule PHA 09/22/25 Logged (Neurontin Capsule) 14:00 Hydroxychloroquine PHA 09/22/25 Logged Tablet (Plaquenil Tab 22:00 Latanoprost (Xalatan) PHA 09/22/25 Logged 18:00 (Nf) Folic Acid PHA 09/23/25 Logged 10:00 (Nf) Levothyroxine PHA 09/23/25 Logged Sodium 07:00 (Nf) Omeprazole PHA 09/23/25 Logged (Prilosec) 10:00 (Nf) Simvastatin PHA 09/23/25 Logged 10:00 Admit ADMIT 09/22/25 Transmitted 12:44 Consistent DIET 09/22/25 Transmitted Carb(Ccho)Diabetes Lunch *Consult Dr. Wolf CONS 09/22/25 Transmitted 12:44 Pt Request For Service PT 09/22/25 Logged 12:44 Nitroglycerin PHA 09/22/25 Logged Sublingual (Ntrostat 12:45 Morphine Sulfate PHA 09/22/25 Logged Injection 12:45 Oxygen By Nasal RT 09/22/25 Transmitted Cannula 12:44 Ondansetron Hcl PHA 09/22/25 Logged (Zofran) 12:45 Comprehensive LAB 09/23/25 Verified Metabolic Panel 04:00 Complete Blood Count LAB 09/23/25 Verified 04:00 Glucose Blood PHA 09/22/25 Transmitted (Accu-Chek Comfort 17:00 Mild Sliding Scale PHA 09/22/25 Transmitted 17:00 Dextrose 50% Syringe PHA 09/22/25 Transmitted 13:00 Problem List: (1) Elevated troponin (2) Left knee GODWIN EM MD Sep 22, 2025 12:48
[2025-09-22] MEDS ORDERED: DEXTROSE (50%) 50ML SYRG IV PRN (13:00)
[2025-09-22] MEDS: InsuLIN REG 1unit/0.01ml Soln (100units/ml) SC SCH (17:00)
[2025-09-22] MEDS: ACCU-CHEK COMFORT CURVE STRIP VI SCH (17:07)
[2025-09-22] MEDS: LATANOPROST 0.005 % OPTH(EYE) SOL 2.5ML EACHEYE SCH (18:10)
[2025-09-22] MEDS: CLOPIDOGREL BISULFATE 75 MG TAB PO ONE (21:09)
[2025-09-22] MEDS: GABAPENTIN 300 MG CAP PO SCH (21:09)
[2025-09-22] MEDS: ATORVASTATIN 20 MG TAB PO SCH (21:09)
[2025-09-22] MEDS: CARVEDILOL 3.125 MG TAB PO SCH (21:11)
[2025-09-23 01:00] VITALS: BP 119/71; PULSE 70; RESP 17; TEMP 99.2; O2SAT 97
[2025-09-23 05:00] VITALS: BP 118/64; PULSE 68; RESP 16; TEMP 98.9; O2SAT 97
[2025-09-23] MEDS ORDERED: LEVOTHYROXINE SODIUM 112 MCG TAB PO SCH (06:00)
[2025-09-23 06:45] LABS: Hematocrit 32.0 % (41.0-53.0); Hemoglobin 10.6 g/dL (13.5-17.5); Mean Corpuscular Hemoglobin 33.4 pg (28.0-32.0); Mean Corpuscular Volume 100.7 fL (80.0-100.0); Nucleated Red Blood Cells % 0.0 %
[2025-09-23 07:13] LABS: Alanine Aminotransferase 29 U/L (7-40); Albumin 4.1 g/dL (3.2-4.8); Alkaline Phosphatase 68 U/L (46-116); Anion Gap 9 (5-15); BUN/Creatinine Ratio 15.6 (10.0-20.0); Blood Urea Nitrogen 15 mg/dL (9-23); Calcium 9.4 mg/dL (8.7-10.4); Carbon Dioxide 23 mmol/L (20-31); Chloride 107 mmol/L (98-107); Glucose 99 mg/dL (74-106); Potassium 3.8 mmol/L (3.5-5.1); Sodium 139 mmol/L (136-145); Total Protein 6.7 g/dL (5.7-8.2)
[2025-09-23 07:15] LABS: Bilirubin, Total 0.5 mg/dL (0.2-1.0)
[2025-09-23 08:00] VITALS: PULSE 78; PULSE 84; RESP 16; O2SAT 98
[2025-09-23 09:00] VITALS: BP 113/78; PULSE 72; RESP 16; TEMP 97.9; O2SAT 97
[2025-09-23] MEDS: CLOPIDOGREL BISULFATE 75 MG TAB PO SCH (10:00)
[2025-09-23] MEDS: FOLIC ACID 1 MG TAB PO SCH (10:18)
[2025-09-23] MEDS: FLUTICASONE PROP NASAL SPR 0.05 % (50MCG) 16GM SCH (10:18)
[2025-09-23] MEDS: ASPirin-EC 81 mg tab PO SCH (10:19)
[2025-09-23] MEDS: PANTOPRAZOLE 40 MG TAB PO SCH (10:19)
[2025-09-23] MEDS ORDERED: CARV3.1240 PO (11:45)
[2025-09-23] MEDS ORDERED: ASPI-543 PO (11:45)
[2025-09-23] MEDS ORDERED: SIMV20TA20 PO (11:45)
[2025-09-23] MEDS ORDERED: CLOP75TA70 PO (11:45)
--- NOTE | 2025-09-23 11:48 | DVHDS2 ---
Discharge Summary Date of Admission Sep 22, 2025 at 11:48 Date of Discharge: Sep 23, 2025 Labs/Diagnostic Data: Laboratory Results Test 09/23/25 10:47 09/23/25 05:30 POC Glucose 135 mg/dl (70-106) White Blood Count 7.5 10^3/uL (4.4-10.8) Red Blood Count 3.18 10^6/uL (4.5-5.90) Hemoglobin 10.6 g/dL (13.5-17.5) Hematocrit 32.0 % (41.0-53.0) Mean Corpuscular Volume 100.7 fL (80.0-100.0) Mean Corpuscular Hemoglobin 33.4 pg (28.0-32.0) Mean Corpuscular Hemoglobin Concent 33.2 g/dL (32.0-36.0) Red Cell Distribution Width 16.5 % (11.8-14.3) Platelet Count 337 10^3/uL (140-450) Mean Platelet Volume 6.4 fL (6.9-10.8) Neutrophils (%) (Auto) 71.9 % (37.0-80.0) Lymphocytes (%) (Auto) 8.0 % (10.0-50.0) Monocytes (%) (Auto) 18.0 % (0.0-12.0) Eosinophils (%) (Auto) 1.2 % (0.0-7.0) Basophils (%) (Auto) 0.9 % (0.0-2.0) Neutrophils # (Auto) 5.4 10 ^3/uL (1.6-8.6) Lymphocytes # (Auto) 0.6 10 ^3/uL (0.4-5.4) Monocytes # (Auto) 1.3 10 ^3/uL (0-1.3) Eosinophils # (Auto) 0.1 10 ^3/uL (0-0.8) Basophils # (Auto) 0.1 10 ^3/uL (0-0.2) Nucleated Red Blood Cells 0.0 % Sodium Level 139 mmol/L (136-145) Potassium Level 3.8 mmol/L (3.5-5.1) Chloride Level 107 mmol/L (98-107) Carbon Dioxide Level 23 mmol/L (20-31) Anion Gap 9 (5-15) Blood Urea Nitrogen 15 mg/dL (9-23) Creatinine 0.96 mg/dL (0.700-1.30) Glomerular Filtration Rate Calc 80 mL/min (>90) BUN/Creatinine Ratio 15.6 (10.0-20.0) Serum Glucose 99 mg/dL (74-106) Calcium Level 9.4 mg/dL (8.7-10.4) Total Bilirubin 0.5 mg/dL (0.2-1.0) Aspartate Amino Transferase (AST) 123 U/L (13-40) Alanine Aminotransferase (ALT) 29 U/L (7-40) Alkaline Phosphatase 68 U/L (46-116) Total Protein 6.7 g/dL (5.7-8.2) Albumin 4.1 g/dL (3.2-4.8) Other Laboratory Tests 09/23/25 05:30 Brief Hx & Hospital Course: This 80-year-old gentleman came to the hospital underwent elective coronary angiogram with a coronary artery stent placement. Overnight patient observed and doing well. Remains pain-free. No shortness for breath. Vitals are stable. Ambulating without distress. He is started on dual antiplatelet therapy statin and continued on his home carvedilol. Patient and his who is at bedside underwent counseling educated regarding aggressive risk factor modification and control of his blood pressure and cholesterol. He is advised to continue the dual antiplatelet therapy minimum one year. Risks of bleeding and benefits of these medications discussed with the patient and his as well. Given overall patient is clinically stable not having any other issues he has been discharged home in stable condition. Patient will call his rpg programmer office and to make a follow up appointment in 1-2 weeks. Operations or Procedures Operative Report CARDIAC METEOROLOGY PROFESSOR PROCEDURE REPORT [place], [place] Date of Service: 09/22/25 Under Baster: Tony Heredia MD PROCEDURES PERFORMED: Coronary angiogram, left heart catheterization, conscious sedation administration and supervision, less than 15 minutes; fluoroscopy use and interpretation. PREOPERATIVE DIAGNOSES: Abnormal stress test with CCS class 3 angina, POSTOP DIAGNOSIS: DESCRIPTION OF PROCEDURE: The patient or appropriate family signed informed consent understanding the risks, benefits and alternatives of the procedure, they wished to proceed. The patient was brought to the cardiac laborer yard in n.p.o. state. The patient was prepped in a sterile fashion. Sedation was used per cardiac cath protocol. I administered 2 mL of 2% lidocaine to the right wrist. With an antegrade front wall puncture. I cannulated the right radial artery and placed a 6-[place] Glidesheath slender. Next, an intra-arterial spasmolytic was administered. I tried to wire with glide but there was a bad raddial loop. after trying to wire for 1-2 mins with angiogram, we had to abandaon radial access given severe radial loop. Next, an intra-arterial spasmolytic was administered. I used US guidance to identify the R CIRCLE SAW OPERATOR which was patent and with micro access after givin 6cc of lidocaine i gained access saved to pacs system using US guidance and punctured artery and placed a 6F sheath. the iliac artery was very very tortuous as well . I used a 6F JL4 and JR4 were used for coronary angiogram and LVEDP measurement and pressure pullback. FINDINGS: RCA: Moderate vessel off the right sinus of Valsalva, there is no severe flow limiting stenosis. heavy calcification. mild diffuse plaquing. LEFT MAIN: Moderate size left main, it bifurcates into LAD and circumflex. no severe stenosis CIRCUMFLEX: Moderate caliber vessel coming off the left main. prox CX has a 50- 60% focal stenosis LAD: LAD is a moderate caliber vessel coming of the left main. prox LAD has a heavily calcific eccentric 80% stenosis. INTERVENTION: We decided to proceed with coronary intervention. I started with a 6F _XB 3.5 ___ Guide to intubate the LM __. Angiomax bolus and gtt was started. Following this, I decided to wire using an .014 BMW across the culprit lesion with ease. At this time, we performed balloon angioplasty with a _2.5 x 12 mm balloon by [employer] IVL balloon up to _but it didnt cross SO i had to use a 2.5 x 12 mm balloon up to 20 atms with 2 inflations and then a 3.o x 12 mm NC up to 20 atms with 1 __ number of inflations. Following this, I decided to place a stent using a 3.0 x12 mm onyx____ stent inflated up to __18___ ATMS over 15 seconds with two separate inflations. I post dilated with a 3.5 NC up to 12 atms for 15 seconds. Following this, the stent balloon removed and angio performed showing 0% residual stenosis. There was sluggish flow in the diagnoal artery given tortuosity but no ecg changes or symptoms. I gave 150 mcg of intracoronary nitroglycerin as well. JANUSZ pre/post: 3./3 CONCLUSIONS: 1. sp pci to prox LAD 80% stenosis PLAN: Aggressive risk factor modification and medical management for the patient. DAPT x 1 year uninterrupted TONY HEREDIA MD Sep 22, 2025 11:47 Condition at Discharge: Stable Final Diagnosis/Problems List ASCAD, sp pci to prox LAD 80% stenosis Discharge Disposition: Home Discharge Instruct/Medications Diet: Consistent carbohydrate, Cardiac 2g Na,low cholest Activity: No Restrictions, As Tolerated Activity comment: no strenuous or vigarous activity or excrcises for 2 weeks Follow Up/Referral: Dr.Mehta Jimenez rpg programmer 2 weeks Medications: as prescribed and home meds per dc list Scheduled Ascorbic Acid (Vitamin C Tablet), 2 TAB PO DAILY, (Reported) Aspirin (Aspir-Low), 81 MG PO DAILY Carvedilol (Carvedilol), 3.125 MG PO BID Clopidogrel Bisulfate (Clopidogrel), 1 TAB PO DAILY Diclofenac Sodium (Diclofenac Sodium Dr), 75 MG PO DAILY, (Reported) Ferrous Sulfate (Ferrous Sulfate), 325 MG PO TIDWM, (Reported) Folic Acid (Folic Acid), 1 MG PO DAILY, (Reported) Gabapentin (Gabapentin), 600 MG PO TID, (Reported) Hydroxychloroquine Sulfate (Hydroxychloroquine Sulfat), 200 MG PO BID, (Reported) Ipratropium [place] (Ipratropium [place]), 0.03 % NA BID, (Reported) Krill Oil (Krill Oil 500 mg), 1 CAP PO DAILY, (Reported) Latanoprost (Latanoprost), 1 DROP EACHEYE QPM, (Reported) Leflunomide (Arava), 1 TAB PO DAILY, (Reported) Levothyroxine Sodium (Levothyroxine Sodium), 137 MCG PO QAM, (Reported) Loperamide Hcl (Loperamide Hcl), 2 MG PO TID, (Reported) Metformin Hydrochloride (Metformin Hcl), 500 MG PO IBID, (Reported) Omeprazole (Prilosec), 40 MG PO DAILY, (Reported) Patients Own Medication (Patients Own Medication), 21 MG INJ Q 3MONS, (Reported) Patients Own Medication (Patients Own Medication), PO DAILY, (Reported) Patients Own Medication (Patients Own Medication), 1 ML INJ Q WEEKLY, (Reported) Simvastatin (Simvastatin), 20 MG PO DAILY Tizanidine Hydrochloride (Zanaflex), 2 MG PO DAILY, (Reported) Upadacitinib (Rinvoq), 15 MG PO DAILY, (Reported) Zinc Gluconate (Zinc), 50 MG PO DAILY, (Reported) Miscellaneous Medications Amoxicillin & Pot Clavulanate (Amoxicillin/Clavulanate P 250-125 mg), 1 TAB PO, (Reported) Fluticasone Propionate (Nasal) (Fluticasone Propionate), 50 MCG NA, (Reported) Vitamin B12 (Vitamin B-12), 1,000 MCG IM, (Reported) Discontinued Medications Metoprolol Tartrate (Metoprolol Tartrate), 12.5 MG PO DAILY, (Reported) Discharge Statement: "Patient was advised to return to the ER or call 911 if any headaches, dizziness, shortness of breath, chest pain, abdominal pain, bleeding, fevers, or worsening of medical condition. Patient was counseled about treatment plan, medications, possible side effects, patientverbalized understanding. All questions were answered to the best of my ability. This discharge took greater then 30 minutes in planning, reviewing documentation, counseling the patient, and discussing with other team members." ASSESSMENT ASSESSMENT Assessment william PAYAN pci to prox LAD 80% stenosis GODWIN TOLEDO MD Sep 23, 2025 11:48
[2025-09-23 13:00] VITALS: BP 140/80; PULSE 78; RESP 18; TEMP 98.9; O2SAT 96
== END 2025-09-23 17:10 | disposition home or self-care (01) | DRG 324 ==
LOC: CATH 08:00 → OVERFLOW 11:48 → TELE-CENTR 14:15
PROVIDERS: ADMIT Hospitalist; ATTEND Hospitalist
PROC: 027034Z Dilation of Coronary Artery, One Artery with Drug-eluting Intraluminal Device, Percutaneous Approach (ICD-10-PCS; principal; 2025-09-22)
PROC: 4A023N7 Measurement of Cardiac Sampling and Pressure, Left Heart, Percutaneous Approach (ICD-10-PCS; 2025-09-22)
PROC: B211YZZ Fluoroscopy of Multiple Coronary Arteries using Other Contrast (ICD-10-PCS; 2025-09-22)
PROC: 02F03ZZ Fragmentation in Coronary Artery, One Artery, Percutaneous Approach (ICD-10-PCS; 2025-09-22)
DX: I25.119 Atherosclerotic heart disease of native coronary artery with unspecified angina pectoris (principal); I10 Essential (primary) hypertension; M17.12 Unilateral primary osteoarthritis, left knee; Z79.899 Other long term (current) drug therapy; Z82.49 Family history of ischemic heart disease and other diseases of the circulatory system
CPT/HCPCS: 36415; 80053; 82565; 82962; 85025; 92928; 93458; 97163; 99152; G0378; J2250